=== PATIENT | male | born 1985 | race Caucasian/White ===

== ENCOUNTER → 2017-02-18 | Outpatient (CLI) | payer MEDICARE, MEDICAID ==
[~2017-02-18] MED LIST: ALBU83IN IN; ALBUTEROL INH; FLEXERIL PO; FLUT22IN IN; KEPPRA PO; NORT25CA2 OR; SING10TA31 OR
[2017-02-18 15:21] LABS: BASO % 0.4 % (0.0-1.0); EOS # 0.5 K/mm3 (0.0-0.50); EOS % 4.1 % (0.0-3.0); LYMPH # 2.3 K/mm3 (1.5-4.5); LYMPH % 18.8 % (24.0-44.0); MEAN CORPUSCULAR HEMOGLOBIN 33.2 pg (27.0-33.0); MEAN CORPUSCULAR HGB CONC 33.7 g/dl (32.0-36.5); MEAN CORPUSCULAR VOLUME 98.5 fl (80.0-96.0); MONO # 0.6 K/mm3 (0.0-0.8); MONO % 5.5 % (0.0-5.0); NEUTROPHILS % 70.4 % (36.0-66.0); RED CELL DISTRIBUTION WIDTH 12.9 % (11.5-14.5); WHITE BLOOD COUNT 11.4 K/mm3 (4.0-10.0)
[2017-02-18 15:38] LABS: ALBUMIN 3.6 GM/DL (3.2-5.2); ALKALINE PHOSPHATASE 98 U/L (45-117); ALT/SGPT 33 U/L (12-78); ANION GAP 6 MEQ/L (8-16); AST/SGOT 17 U/L (15-37); BILIRUBIN,TOTAL 0.5 MG/DL (0.2-1.0); BLOOD UREA NITROGEN 11 MG/DL (7-18); CARBON DIOXIDE LEVEL 30 MEQ/L (21-32); CHLORIDE LEVEL 101 MEQ/L (98-107); CHOLESTEROL LEVEL 141 MG/DL (<200); FREE T4 1.16 NG/DL (0.76-1.46); GLOMERULAR FILTRATION RATE > 60.0 (>60); GLUCOSE, FASTING 89 MG/DL (70-105); SODIUM LEVEL 137 MEQ/L (136-145); TOTAL PROTEIN 8.1 GM/DL (6.4-8.2); TRIGLYCERIDES LEVEL 84 MG/DL (<150)
[2017-02-22 00:06] LABS: LACOSAMIDE LEVEL 0.9 ug/mL (5.0-10.0)
== END ==
LOC: M LAB 13:34
PROVIDERS: ATTEND Nurse Practitioner Adult Health
DX: G40.909 Epilepsy, unspecified, not intractable, without status epilepticus (principal); E55.9 Vitamin D deficiency, unspecified; E78.5 Hyperlipidemia, unspecified; Z79.899 Other long term (current) drug therapy

== ENCOUNTER 2017-03-18 20:02 | Emergency (ER) | payer MEDICAID, MEDICARE ==
[~2017-03-18] VITALS: Ht 180.3 cm; Wt 159.9 kg
[2017-03-18] MEDS ORDERED: PROP1TAB29 PO (20:12)
[2017-03-18] MEDS ORDERED: ASMA220A (20:12)
[2017-03-18] MEDS ORDERED: VIMP50TA3 (20:12)
[2017-03-18] MEDS ORDERED: NORT10CA2 PO (20:12)
[2017-03-18] MEDS ORDERED: KEPP10002 PO (20:12)
[2017-03-18] MEDS ORDERED: INCR1INH (20:12)
[2017-03-18] MEDS ORDERED: TRIMETHOBENZAMIDE HCL INJ 200 MG/2 ML VIAL (J3250) IM ONE (20:45)
[2017-03-18 21:17] VITALS: BP 124/68
[2017-03-18] MEDS ORDERED: TIGA300C2 PO (21:30)
== END 2017-03-18 23:27 | disposition home or self-care (01) ==
LOC: M ED 20:02
DX: R11.2 Nausea with vomiting, unspecified (principal); R19.7 Diarrhea, unspecified; G43.909 Migraine, unspecified, not intractable, without status migrainosus; J45.909 Unspecified asthma, uncomplicated; Z87.891 Personal history of nicotine dependence; Z79.899 Other long term (current) drug therapy; Z88.6 Allergy status to analgesic agent; Z88.8 Allergy status to other drugs, medicaments and biological substances
CPT/HCPCS: 96372; 99282; J3250

== ENCOUNTER → 2017-09-19 | Outpatient (CLI) | payer MEDICARE, OTHER ==
[2017-09-19 13:54] LABS: BASO % 0.3 % (0.0-1.0); EOS # 0.5 10^3/uL (0.0-0.50); EOS % 5.2 % (0.0-3.0); HEMATOCRIT 42.4 % (42.0-52.0); HEMOGLOBIN 13.8 g/dl (14.0-18.0); IMMATURE GRANULOCYTE % 0.3 % (0-0); LYMPH # 2.4 10^3/uL (1.5-4.5); MEAN CORPUSCULAR HEMOGLOBIN 32.3 pg (27.0-33.0); MEAN CORPUSCULAR HGB CONC 32.5 g/dl (32.0-36.5); MEAN CORPUSCULAR VOLUME 99.3 fl (80.0-96.0); MONO # 0.7 10^3/uL (0.0-0.8); MONO % 8.1 % (0.0-5.0); NEUTROPHILS # 5.4 10^3/uL (1.8-7.7); NEUTROPHILS % 60.1 % (36.0-66.0); PLATELET COUNT, AUTOMATED 330 10^3/uL (150-450); RED BLOOD COUNT 4.27 10^6/uL (4.30-6.10); RED CELL DISTRIBUTION WIDTH 13.2 % (11.5-14.5)
[2017-09-19 14:08] LABS: ESTIMATED AVERAGE GLUCOSE 128 MG/DL (60-110); HEMOGLOBIN A1c 6.1 %
[2017-09-19 14:35] LABS: ALBUMIN 3.9 GM/DL (3.2-5.2); ALBUMIN/GLOBULIN RATIO 0.95 (1.00-1.93); ALKALINE PHOSPHATASE 93 U/L (45-117); ALT/SGPT 41 U/L (12-78); ANION GAP 7 MEQ/L (8-16); AST/SGOT 25 U/L (7-37); BILIRUBIN,TOTAL 0.5 MG/DL (0.2-1.0); BLOOD UREA NITROGEN 14 MG/DL (7-18); CALCIUM LEVEL 9.1 MG/DL (8.5-10.1); CARBON DIOXIDE LEVEL 32 MEQ/L (21-32); CHLORIDE LEVEL 100 MEQ/L (98-107); CHOLESTEROL LEVEL 178 MG/DL (<200); CHOLESTEROL RISK RATIO 3.068 (<5); CREATININE FOR GFR 0.73 MG/DL (0.70-1.30); GLOMERULAR FILTRATION RATE > 60.0 (>60); GLUCOSE, FASTING 88 MG/DL (70-105); HDL CHOLESTEROL 58 MG/DL (>40); LDL CHOLESTEROL 94.4 MG/DL (<100); NON-HDL-C 120 MG/DL; POTASSIUM SERUM 4.5 MEQ/L (3.5-5.1); SODIUM LEVEL 139 MEQ/L (136-145); THYROXINE (T4) 10.3 UG/DL (4.5-12.0); TRIGLYCERIDES LEVEL 128 MG/DL (<150)
[2017-09-19 15:44] LABS: TOTAL 25(OH) VITAMIN D 9.4 NG/ML (30.0-100.0)
== END ==
LOC: M LAB 13:11
DX: I10 Essential (primary) hypertension (principal); E78.5 Hyperlipidemia, unspecified; Z79.899 Other long term (current) drug therapy
CPT/HCPCS: 84443

== ENCOUNTER 2019-04-30 15:29 | Emergency (ER) | payer MEDICARE, MEDICAID ==
[~2019-04-30] VITALS: Ht 188 cm; Wt 167.7 kg
[~2019-04-30 15:29] MED LIST changes: +ASMA220A; +INCR1INH; +KEPP10002 PO; +NORT10CA2 PO; +PROP20TA72 PO; +TIGA300C2 PO; +VIMP50TA3
[2019-04-30] MEDS ORDERED: IBUP-1022 PO (18:28)
[2019-04-30 18:38] VITALS: BP 138/86
== END 2019-04-30 18:33 | disposition home or self-care (01) ==
LOC: M ED 15:29
DX: S16.1XXA Strain of muscle, fascia and tendon at neck level, initial encounter (principal); X58.XXXA Exposure to other specified factors, initial encounter; Y92.9 Unspecified place or not applicable; Y93.9 Activity, unspecified; Y99.9 Unspecified external cause status; I10 Essential (primary) hypertension; Z79.899 Other long term (current) drug therapy

== ENCOUNTER → 2022-03-27 | Outpatient (REF) | payer MEDICARE ==
[~2022-03-27] MED LIST changes: +IBUP-1022 PO
[2022-03-27 18:21] LABS: APPEARANCE, URINE HAZY (CLEAR); BACTERIA, URINE AUTO 2+ (NEGATIVE); BILIRUBIN, URINE AUTO NEGATIVE (NEGATIVE); BLOOD, URINE BLOOD 3+ (NEGATIVE); COLOR, URINE YELLOW (YELLOW); GLUCOSE, URINE (UA) AUTO NEGATIVE (NEGATIVE); KETONE, URINE AUTO NEGATIVE (NEGATIVE); LEUKOCYTE ESTERASE, URINE AUTO 3+ (NEGATIVE); MUCUS, URINE SMALL (NEGATIVE); NITRITE, URINE AUTO POSITIVE (NEGATIVE); PROTEIN, URINE AUTO 2+ mg/dL (NEGATIVE); RBC, URINE AUTO TNTC /HPF (0-3); SPECIFIC GRAVITY URINE AUTO 1.014 (1.002-1.035); SQUAMOUS EPITHELIAL CELL UR AU 1 /HPF (0-6); UROBILINOGEN, URINE AUTO 0.2 mg/dL (0.0-2.0); WBC, URINE AUTO 95 /HPF (0-3)
== END ==
LOC: M LAB REF 18:02
PROVIDERS: ATTEND Physician Assistant Medical
DX: N39.0 Urinary tract infection, site not specified (principal)

== ENCOUNTER 2022-04-16 22:57 | Emergency (ER) | payer MEDICARE ==
[~2022-04-16] VITALS: Ht 177.8 cm; Wt 171.4 kg
[~2022-04-16 22:57] MED LIST changes: -ASMA220A; +MOME220A
[2022-04-17] MEDS ORDERED: ASPIRIN 81 MG CHEW TABLET PO ONE (07:10)
[2022-04-17 07:41] LABS: BASO % 0.4 % (0.0-1.0); EOS # 0.6 10^3/uL (0.0-0.5); EOS % 5.3 % (0.0-3.0); HEMATOCRIT 44.7 % (42.0-52.0); HEMOGLOBIN 13.8 g/dl (13.5-17.5); LYMPH # 2.8 10^3/uL (1.5-5.0); LYMPH % 26.6 % (24.0-44.0); MEAN CORPUSCULAR HEMOGLOBIN 31.5 pg (27.0-33.0); MEAN CORPUSCULAR HGB CONC 30.9 g/dl (32.0-36.5); MEAN CORPUSCULAR VOLUME 102.1 fl (80.0-96.0); MONO # 0.8 10^3/uL (0.0-0.8); MONO % 7.3 % (2.0-8.0); NEUTROPHILS # 6.2 10^3/uL (1.5-8.5); NEUTROPHILS % 60.1 % (36.0-66.0); PLATELET COUNT, AUTOMATED 352 10^3/uL (150-450); RED BLOOD COUNT 4.38 10^6/uL (4.30-6.10); WHITE BLOOD COUNT 10.3 10^3/uL (4.0-10.0)
[2022-04-17 08:15] LABS: CK-MB VALUE MASS 1.7 NG/ML (<3.6); MB/CK RELATIVE INDEX 1.37 (< OR =4)
[2022-04-17 08:23] LABS: ALBUMIN 3.7 GM/DL (3.2-5.2); BILIRUBIN,DIRECT 0.1 MG/DL (0.0-0.2); BILIRUBIN,TOTAL 0.2 MG/DL (0.2-1.0); FREE T4 0.98 NG/DL (0.76-1.46); THYROID STIMULATING HORMONE 2.17 uIU/ML (0.358-3.740); TOTAL PROTEIN 8.1 GM/DL (6.4-8.2)
[2022-04-17 10:28] LABS: CK-MB VALUE MASS 1.1 NG/ML (<3.6); MB/CK RELATIVE INDEX 0.9 (< OR =4)
[2022-04-17 11:00] VITALS: BP 142/89
== END 2022-04-17 11:56 | disposition home or self-care (01) ==
LOC: M ED 22:57 → EDBD 22:57 → M ED 04-17 11:56
DX: I44.0 Atrioventricular block, first degree (principal); I45.10 Unspecified right bundle-branch block; I10 Essential (primary) hypertension; E78.5 Hyperlipidemia, unspecified; Z79.899 Other long term (current) drug therapy

== ENCOUNTER → 2022-06-17 | Outpatient (CLI) | payer MEDICARE | LOC: M PLARAD 14:36 | PROVIDERS: ATTEND Psychiatry & Neurology Neurology | DX: G40.209 Localization-related (focal) (partial) symptomatic epilepsy and epileptic syndromes with complex partial seizures, not intractable, without status epilepticus (principal); H53.2 Diplopia ==

== ENCOUNTER 2023-01-15 19:59 | Inpatient (IN) | payer MEDICARE ==
[~2023-01-15] VITALS: Ht 177.8 cm; Wt 173.3 kg
[2023-01-15] MEDS ORDERED: ACETAMINOPHEN 325 MG TAB PO ONE (20:20)
[2023-01-15] MEDS ORDERED: NS 1,000 ML IV ONE (22:25)
[2023-01-15] MEDS ORDERED: KETOROLAC 30 MG/ML 1ML VIAL IV ONE (22:25)
[2023-01-15] MEDS ORDERED: ONDANSETRON 4MG 2ML VIAL IV ONE (22:25)
[2023-01-15] MEDS ORDERED: levETIRAcetam 250MG TABLET (KEPPRA) PO ONE (22:35)
[2023-01-15 22:37] LABS: BASO # 0.1 10^3/uL (0.0-0.2); BASO % 0.2 % (0.0-1.0); EOS # 0.1 10^3/uL (0.0-0.5); EOS % 0.2 % (0.0-3.0); HEMOGLOBIN 13.2 g/dl (13.5-17.5); LYMPH # 1.3 10^3/uL (1.5-5.0); LYMPH % 6.1 % (24.0-44.0); MEAN CORPUSCULAR VOLUME 96.9 fl (80.0-96.0); MONO # 1.4 10^3/uL (0.0-0.8); MONO % 6.3 % (2.0-8.0); NEUTROPHILS # 18.9 10^3/uL (1.5-8.5); NEUTROPHILS % 86.7 % (36.0-66.0); PLATELET COUNT, AUTOMATED 330 10^3/uL (150-450); RED BLOOD COUNT 4.13 10^6/uL (4.30-6.10); WHITE BLOOD COUNT 21.8 10^3/uL (4.0-10.0)
[2023-01-15 22:42] LABS: LIPASE 25 U/L (12-53)
[2023-01-15 22:44] LABS: ALBUMIN 3.7 G/DL (3.2-5.2); ALKALINE PHOSPHATASE 91 U/L (46-116); ALT/SGPT 31 U/L (7.0-40); AST/SGOT 22 U/L (<34); BILIRUBIN,TOTAL 0.9 MG/DL (0.3-1.2); BLOOD UREA NITROGEN 19 MG/DL (9-23); CALCIUM LEVEL 9.5 MG/DL (8.5-10.1); CARBON DIOXIDE LEVEL 27 MMOL/L (20-31); CHLORIDE LEVEL 97 MMOL/L (98-107); CREATININE FOR GFR 1.21 MG/DL (0.70-1.30); GLOMERULAR FILTRATION RATE > 60.0 (>60); GLUCOSE, FASTING 147 MG/DL (60-100); POTASSIUM SERUM 3.6 MMOL/L (3.5-5.1); SODIUM LEVEL 133 MMOL/L (136-145); TOTAL PROTEIN 7.5 G/DL (5.7-8.2)
[2023-01-16] MEDS ORDERED: ISOVUE-370 76% 100ML VIAL As Ordered ONE (00:07)
[2023-01-16] MEDS ORDERED: NS 1,000 ML IV ONE (01:00)
[2023-01-16] MEDS ORDERED: cefTRIAXone SOD 1 GM in D5W MINI-BAG PLUS 50 ML IV ONE (01:30)
[2023-01-16] MEDS ORDERED: LOSA100T46 PO (01:37)
[2023-01-16] MEDS ORDERED: LEVE10003 PO (01:37)
[2023-01-16] MEDS ORDERED: METF500T13 PO (01:37)
[2023-01-16] MEDS ORDERED: HOME MED LIST COMPLETE! XX SCH (01:40)
[2023-01-16] MEDS ORDERED: LR 1,000 ML IV SCH (02:20)
[2023-01-16] MEDS ORDERED: DEXTROSE 50% 50ML SYRINGE IV PRN (02:20)
[2023-01-16] MEDS ORDERED: PANTOPRAZOLE 40MG TAB (PROTONIX) PO ONE (02:20)
[2023-01-16] MEDS ORDERED: GLUCOSE 4GM CHEW TABLET PO PRN (02:20)
[2023-01-16] MEDS ORDERED: GLUCAGON INJ 1MG VIAL SC PRN (02:20)
[2023-01-16] MEDS: ACETAMINOPHEN TAB 650MG DOSE (2X325MG) PO PRN ×3 (02:39→20:42)
[2023-01-16 03:10] LABS: GC DNA AMPLIFICATION NEGATIVE (NEGATIVE)
[2023-01-16] MEDS: IBUPROFEN 400MG TAB PO PRN ×2 (03:34→19:02)
[2023-01-16] MEDS: INSULIN LISPRO (NovoLOG) PER UNIT SC SCH ×3 (07:30→18:19)
[2023-01-16 07:35] LABS: BASO # 0.1 10^3/uL (0.0-0.2); BASO % 0.3 % (0.0-1.0); EOS # 0.1 10^3/uL (0.0-0.5); EOS % 0.5 % (0.0-3.0); HEMATOCRIT 36.6 % (42.0-52.0); LYMPH # 1.8 10^3/uL (1.5-5.0); LYMPH % 9.1 % (24.0-44.0); MEAN CORPUSCULAR HEMOGLOBIN 32.6 pg (27.0-33.0); MEAN CORPUSCULAR HGB CONC 32.8 g/dl (32.0-36.5); MEAN CORPUSCULAR VOLUME 99.5 fl (80.0-96.0); MONO % 7.9 % (2.0-8.0); NEUTROPHILS # 15.8 10^3/uL (1.5-8.5); NEUTROPHILS % 81.7 % (36.0-66.0); PLATELET COUNT, AUTOMATED 267 10^3/uL (150-450); RED BLOOD COUNT 3.68 10^6/uL (4.30-6.10); WHITE BLOOD COUNT 19.4 10^3/uL (4.0-10.0)
[2023-01-16 08:03] LABS: MONO # 1.5 10^3/uL (0.0-0.8)
[2023-01-16 08:08] LABS: BLOOD UREA NITROGEN 20 MG/DL (9-23); CALCIUM LEVEL 8.1 MG/DL (8.5-10.1); CARBON DIOXIDE LEVEL 28 MMOL/L (20-31); CHLORIDE LEVEL 103 MMOL/L (98-107); CREATININE FOR GFR 1.27 MG/DL (0.70-1.30); GLOMERULAR FILTRATION RATE > 60.0 (>60); GLUCOSE, FASTING 161 MG/DL (60-100); POTASSIUM SERUM 3.6 MMOL/L (3.5-5.1); SODIUM LEVEL 138 MMOL/L (136-145)
[2023-01-16] MEDS: ENOXAPARIN 40MG/0.4ML SYRINGE (J1650 PER 10MG) SC SCH (08:55)
[2023-01-16] MEDS: levETIRAcetam 250MG TABLET (KEPPRA) PO SCH ×2 (08:55→20:41)
[2023-01-16 11:50] VITALS: BP 108/78
[2023-01-16 14:00] VITALS: BP 143/85
[2023-01-16] MEDS: CALCIUM CARBONATE 500 MG CHEW U/D PO PRN (15:38)
[2023-01-16 19:50] VITALS: BP 124/51
[2023-01-17] MEDS: cefTRIAXone SOD 1 GM in D5W MINI-BAG PLUS 50 ML IV SCH (00:17)
[2023-01-17 01:30] VITALS: BP 126/73
[2023-01-17 05:40] VITALS: BP 125/74
[2023-01-17 06:40] LABS: HEMATOCRIT 36.4 % (42.0-52.0); HEMOGLOBIN 11.7 g/dl (13.5-17.5); MEAN CORPUSCULAR HEMOGLOBIN 32.1 pg (27.0-33.0); MEAN CORPUSCULAR HGB CONC 32.1 g/dl (32.0-36.5); PLATELET COUNT, AUTOMATED 279 10^3/uL (150-450); RED BLOOD COUNT 3.64 10^6/uL (4.30-6.10); WHITE BLOOD COUNT 14.9 10^3/uL (4.0-10.0)
[2023-01-17 07:24] LABS: BLOOD UREA NITROGEN 18 MG/DL (9-23); CARBON DIOXIDE LEVEL 29 MMOL/L (20-31); CHLORIDE LEVEL 103 MMOL/L (98-107); CREATININE FOR GFR 1.14 MG/DL (0.70-1.30); GLOMERULAR FILTRATION RATE > 60.0 (>60); GLUCOSE, FASTING 147 MG/DL (60-100); POTASSIUM SERUM 3.8 MMOL/L (3.5-5.1); SODIUM LEVEL 138 MMOL/L (136-145)
[2023-01-17] MEDS: ENOXAPARIN 40MG/0.4ML SYRINGE (J1650 PER 10MG) SC SCH (09:41)
[2023-01-17] MEDS: INSULIN LISPRO (NovoLOG) PER UNIT SC SCH ×3 (09:43→17:35)
[2023-01-17] MEDS: levETIRAcetam 250MG TABLET (KEPPRA) PO SCH ×2 (09:44→20:32)
[2023-01-17] MEDS: PANTOPRAZOLE 40MG TAB (PROTONIX) PO SCH (09:44)
[2023-01-17 10:00] VITALS: BP 124/73
[2023-01-17 14:00] VITALS: BP 138/79
[2023-01-17] MEDS: CALCIUM CARBONATE 500 MG CHEW U/D PO PRN (14:18)
[2023-01-17 18:00] VITALS: BP 135/90
[2023-01-17 22:00] VITALS: BP 131/77
[2023-01-18 02:00] VITALS: BP 129/75
[2023-01-18] MEDS: cefTRIAXone SOD 1 GM in D5W MINI-BAG PLUS 50 ML IV SCH (02:00)
[2023-01-18 06:00] VITALS: BP 128/75
[2023-01-18 06:27] LABS: HEMATOCRIT 36.4 % (42.0-52.0); HEMOGLOBIN 11.7 g/dl (13.5-17.5); MEAN CORPUSCULAR HEMOGLOBIN 32.2 pg (27.0-33.0); MEAN CORPUSCULAR HGB CONC 32.1 g/dl (32.0-36.5); MEAN CORPUSCULAR VOLUME 100.3 fl (80.0-96.0); PLATELET COUNT, AUTOMATED 325 10^3/uL (150-450); RED BLOOD COUNT 3.63 10^6/uL (4.30-6.10); WHITE BLOOD COUNT 9.7 10^3/uL (4.0-10.0)
[2023-01-18] MEDS: levETIRAcetam 250MG TABLET (KEPPRA) PO SCH (08:12)
[2023-01-18] MEDS: PANTOPRAZOLE 40MG TAB (PROTONIX) PO SCH (08:12)
[2023-01-18] MEDS: INSULIN LISPRO (NovoLOG) PER UNIT SC SCH ×2 (08:13→11:39)
[2023-01-18] MEDS: ENOXAPARIN 40MG/0.4ML SYRINGE (J1650 PER 10MG) SC SCH (08:13)
[2023-01-18 10:00] VITALS: BP 144/88
[2023-01-18] MEDS ORDERED: CEFD300C41 PO (10:42)
== END 2023-01-18 12:14 | disposition home or self-care (01) | DRG 690 ==
LOC: EDBD 19:59 → M ED 19:59 → M ED INP 01-16 02:10 → ENRESERV 01-16 09:23 → M MSPAV 01-16 11:10
PROVIDERS: ADMIT Internal Medicine; ATTEND Internal Medicine
DX: N12 Tubulo-interstitial nephritis, not specified as acute or chronic (principal); Z68.43 Body mass index [BMI] 50.0-59.9, adult; E66.01 Morbid (severe) obesity due to excess calories; G40.909 Epilepsy, unspecified, not intractable, without status epilepticus; J45.909 Unspecified asthma, uncomplicated; I10 Essential (primary) hypertension; K21.9 Gastro-esophageal reflux disease without esophagitis; N20.0 Calculus of kidney; E11.9 Type 2 diabetes mellitus without complications; E27.8 Other specified disorders of adrenal gland; D53.9 Nutritional anemia, unspecified; Z79.899 Other long term (current) drug therapy

== ENCOUNTER 2023-02-12 23:03 | Inpatient (IN) | payer MEDICARE ==
[~2023-02-12] VITALS: Ht 185.4 cm; Wt 173.4 kg
[~2023-02-12 23:03] MED LIST changes: +CEFD300C41 PO; +LEVE10003 PO; +LOSA100T46 PO; +METF500T13 PO
[2023-02-13] VITALS (20 sets, daily range): BP systolic 102–139; BP diastolic 54–66; TEMP 97.9–100.7; O2SAT 93–100
[2023-02-13 00:57] LABS: APPEARANCE, URINE MANUAL CLEAR (CLEAR); COLOR, URINE MANUAL YELLOW (YELLOW)
[2023-02-13 01:00] LABS: BASO # 0.1 10^3/uL (0.0-0.2); BASO % 0.3 % (0.0-1.0); EOS # 0.3 10^3/uL (0.0-0.5); EOS % 1.4 % (0.0-3.0); HEMATOCRIT 40.1 % (42.0-52.0); HEMOGLOBIN 12.9 g/dl (13.5-17.5); LYMPH # 1.5 10^3/uL (1.5-5.0); LYMPH % 8.1 % (24.0-44.0); MEAN CORPUSCULAR HEMOGLOBIN 31.4 pg (27.0-33.0); MEAN CORPUSCULAR HGB CONC 32.2 g/dl (32.0-36.5); MEAN CORPUSCULAR VOLUME 97.6 fl (80.0-96.0); MONO % 9.8 % (2.0-8.0); NEUTROPHILS # 14.5 10^3/uL (1.5-8.5); PLATELET COUNT, AUTOMATED 283 10^3/uL (150-450); RED BLOOD COUNT 4.11 10^6/uL (4.30-6.10); WHITE BLOOD COUNT 18.1 10^3/uL (4.0-10.0)
[2023-02-13 01:06] LABS: BILIRUBIN, URINE MANUAL 2+ (NEGATIVE); BLOOD URINE MANUAL POSITIVE (NEGATIVE); GLUCOSE, URINE (UA) MANUAL NEGATIVE (NEGATIVE); KETONE, URINE MANUAL NEGATIVE (NEGATIVE); LEUKOCYTE ESTERASE, URINE MAN POSITIVE (NEGATIVE); NITRITE, URINE MANUAL POSITIVE (NEGATIVE); PROTEIN, URINE MANUAL 1+ mg/dL (NEGATIVE); SPECIFIC GRAVITY,URINE MANUAL 1.015 (1.002-1.035); UROBILINOGEN, URINE MANUAL NORMAL (NORMAL)
[2023-02-13 01:08] LABS: BACTERIA, URINE MOD AMOUNT; HYALINE CAST, URINE NONE SEEN /lpf (0-1); SQUAMOUS EPITHELIAL CELL URINE SMALL AMOUNT /hpf (SMALL AMT); TRANSITIONAL EPI CELLS, URINE SMALL AMOUNT /hpf; WBC, URINE 15-20 /hpf (0-3)
[2023-02-13 01:15] LABS: MONO # 1.8 10^3/uL (0.0-0.8)
[2023-02-13 01:28] LABS: ALBUMIN 3.6 G/DL (3.2-5.2); BILIRUBIN,TOTAL 1.2 MG/DL (0.3-1.2); CALCIUM LEVEL 9.5 MG/DL (8.5-10.1); CREATININE FOR GFR 2.17 MG/DL (0.70-1.30); GLOMERULAR FILTRATION RATE 36.6 (>60); POTASSIUM SERUM 3.7 MMOL/L (3.5-5.1); TOTAL PROTEIN 7.7 G/DL (5.7-8.2)
[2023-02-13 01:30] LABS: RSV AMPLIFICATION NEGATIVE (NEGATIVE)
[2023-02-13] MEDS ORDERED: ACETAMINOPHEN 325 MG TAB PO ONE (01:55)
[2023-02-13] MEDS ORDERED: NS IV ONE (01:55)
[2023-02-13] MEDS ORDERED: PIPERACILLIN/TAZOBACTAM SOD 3.375 GM in D5W MINI-BAG PLUS 50 ML IV ONE (02:50)
[2023-02-13] MEDS ORDERED: HOME MED LIST COMPLETE! XX SCH (05:05)
[2023-02-13] MEDS ORDERED: MORPHINE 2 MG/ML 1ML VIAL IV PRN (05:15)
[2023-02-13] MEDS ORDERED: GLUCOSE 4GM CHEW TABLET PO PRN ×2 (05:15→08:50)
[2023-02-13] MEDS ORDERED: GLUCAGON INJ 1MG VIAL SC PRN ×2 (05:15→08:50)
[2023-02-13] MEDS ORDERED: DEXTROSE 50% 50ML SYRINGE IV PRN ×2 (05:15→08:50)
[2023-02-13] MEDS ORDERED: MORPHINE 4 MG/ML 1ML VIAL IV PRN (05:15)
[2023-02-13] MEDS ORDERED: ONDANSETRON 4MG 2ML VIAL IV PRN ×2 (05:15→08:45)
[2023-02-13] MEDS ORDERED: INSULIN LISPRO (NovoLOG) PER UNIT SC SCH (06:00)
[2023-02-13] MEDS: ACETAMINOPHEN TAB 650MG DOSE (2X325MG) PO PRN ×2 (06:07→13:07)
[2023-02-13] MEDS ORDERED: ALBUTEROL SULFATE 2.5MG/0.5ML INH NEB SOLN NEB PRN (06:10)
[2023-02-13] MEDS ORDERED: ISOVUE-300 61% 100ML VIAL As Ordered ONE (07:18)
[2023-02-13] MEDS ORDERED: LIDOCAINE 2% 100MG/5ML SDV (FOR ANES.) As Ordered ONE (08:26)
[2023-02-13] MEDS ORDERED: propofoL 200 MG/20 ML VIAL As Ordered ONE (08:26)
[2023-02-13] MEDS ORDERED: ROCURONIUM BROMIDE 50MG/5ML VIAL As Ordered ONE (08:26)
[2023-02-13] MEDS ORDERED: SUGAMMADEX SODIUM 500 MG/5 ML VIAL (BRIDION) As Ordered ONE (08:26)
[2023-02-13] MEDS ORDERED: ONDANSETRON 4MG 2ML VIAL As Ordered ONE (08:26)
[2023-02-13] MEDS ORDERED: MIDAZOLAM INJ 2MG/2ML VIAL As Ordered ONE (08:26)
[2023-02-13] MEDS ORDERED: fentaNYL 100 MCG/2 ML INJECTION As Ordered ONE (08:26)
[2023-02-13] MEDS ORDERED: ACETAMINOPHEN 1000MG 100ML IV BAG As Ordered ONE (08:27)
[2023-02-13] MEDS ORDERED: ALBUTEROL 6.7GM INHALER **FOR ANES. CART/OMNICELL ONLY As Ordered ONE (08:30)
[2023-02-13] MEDS ORDERED: HYDROMORPHONE HCL 0.5 MG/ 0.5 ML SYRINGE IV PRN (08:45)
[2023-02-13] MEDS ORDERED: fentaNYL 100 MCG/2 ML INJECTION IV PRN (08:45)
[2023-02-13] MEDS ORDERED: LR 1,000 ML IV SCH (08:45)
[2023-02-13] MEDS ORDERED: INSULIN LISPRO (NovoLOG) PER UNIT SC PRN (08:45)
[2023-02-13] MEDS ORDERED: oxyCODONE 5MG TAB PO PRN (08:45)
[2023-02-13] MEDS ORDERED: levETIRAcetam INJection 1,000 MG in D5W 100 ML IV SCH (09:00)
[2023-02-13] MEDS: PIPERACILLIN/TAZOBACTAM SOD 3.375 GM in D5W MINI-BAG PLUS 50 ML IV SCH ×3 (10:16→20:26)
[2023-02-13] MEDS: NS 1,000 ML IV SCH ×2 (10:16→22:25)
[2023-02-13] MEDS: levETIRAcetam 250MG TABLET (KEPPRA) PO SCH ×2 (10:18→20:26)
[2023-02-13] MEDS: INSULIN LISPRO (NovoLOG) PER UNIT SC SCH ×3 (13:08→20:26)
[2023-02-14] VITALS (12 sets, daily range): BP systolic 111–130; BP diastolic 55–77; TEMP 96–98.5; O2SAT 75–99
[2023-02-14] MEDS: PIPERACILLIN/TAZOBACTAM SOD 3.375 GM in D5W MINI-BAG PLUS 50 ML IV SCH ×4 (02:40→20:49)
[2023-02-14 05:44] LABS: HEMATOCRIT 32.6 % (42.0-52.0); MEAN CORPUSCULAR HEMOGLOBIN 32.4 pg (27.0-33.0); MEAN CORPUSCULAR HGB CONC 31.9 g/dl (32.0-36.5); MEAN CORPUSCULAR VOLUME 101.6 fl (80.0-96.0); PLATELET COUNT, AUTOMATED 224 10^3/uL (150-450); RED BLOOD COUNT 3.21 10^6/uL (4.30-6.10); WHITE BLOOD COUNT 15.4 10^3/uL (4.0-10.0)
[2023-02-14 05:47] LABS: HEMOGLOBIN 10.4 g/dl (13.5-17.5)
[2023-02-14 06:09] LABS: CALCIUM LEVEL 7.6 MG/DL (8.5-10.1); CREATININE FOR GFR 1.65 MG/DL (0.70-1.30); GLOMERULAR FILTRATION RATE 50.2 (>60); POTASSIUM SERUM 3.6 MMOL/L (3.5-5.1)
[2023-02-14] MEDS: INSULIN LISPRO (NovoLOG) PER UNIT SC SCH ×4 (08:46→20:54)
[2023-02-14] MEDS: levETIRAcetam 250MG TABLET (KEPPRA) PO SCH ×2 (08:47→20:49)
[2023-02-14] MEDS ORDERED: OMEPRAZOLE 20MG CAP PO ONE (22:00)
[2023-02-15] MEDS: PIPERACILLIN/TAZOBACTAM SOD 3.375 GM in D5W MINI-BAG PLUS 50 ML IV SCH ×2 (03:00→08:46)
[2023-02-15 05:50] VITALS: BP 130/80; TEMP 98.1; O2SAT 97
[2023-02-15 06:14] LABS: BASO % 0.4 % (0.0-1.0); EOS # 0.4 10^3/uL (0.0-0.5); EOS % 3.7 % (0.0-3.0); HEMATOCRIT 32.2 % (42.0-52.0); HEMOGLOBIN 10.3 g/dl (13.5-17.5); LYMPH # 1.8 10^3/uL (1.5-5.0); LYMPH % 16.5 % (24.0-44.0); MEAN CORPUSCULAR HEMOGLOBIN 31.8 pg (27.0-33.0); MEAN CORPUSCULAR VOLUME 99.4 fl (80.0-96.0); MONO # 0.9 10^3/uL (0.0-0.8); MONO % 8.4 % (2.0-8.0); NEUTROPHILS # 7.8 10^3/uL (1.5-8.5); NEUTROPHILS % 70.7 % (36.0-66.0); PLATELET COUNT, AUTOMATED 276 10^3/uL (150-450); RED BLOOD COUNT 3.24 10^6/uL (4.30-6.10)
[2023-02-15 06:44] LABS: BLOOD UREA NITROGEN 19 MG/DL (9-23); CALCIUM LEVEL 7.8 MG/DL (8.5-10.1); CARBON DIOXIDE LEVEL 29 MMOL/L (20-31); CHLORIDE LEVEL 104 MMOL/L (98-107); CREATININE FOR GFR 1.36 MG/DL (0.70-1.30); GLOMERULAR FILTRATION RATE > 60.0 (>60); GLUCOSE, FASTING 142 MG/DL (60-100); POTASSIUM SERUM 3.9 MMOL/L (3.5-5.1); SODIUM LEVEL 139 MMOL/L (136-145)
[2023-02-15] MEDS: levETIRAcetam 250MG TABLET (KEPPRA) PO SCH (08:45)
[2023-02-15] MEDS: INSULIN LISPRO (NovoLOG) PER UNIT SC SCH ×2 (08:46→13:11)
[2023-02-15] MEDS ORDERED: CEFD300C41 PO (11:50)
[2023-02-15] MEDS ORDERED: AMLO1TAB25 PO (11:50)
[2023-02-15] MEDS ORDERED: PROBCAP14 PO (11:51)
== END 2023-02-15 13:33 | disposition home or self-care (01) | DRG 872 ==
LOC: EDBD 23:03 → M ED 23:03 → UNDOADMIN 02-13 05:15 → M ED INP 02-13 05:15 → ENRESERV 02-13 06:52 → M PCU 02-13 09:31 → M MSPAV 02-14 22:45
PROVIDERS: ADMIT Internal Medicine; ATTEND Internal Medicine Nephrology
PROC: 0T767DZ Dilation of Right Ureter with Intraluminal Device, Via Natural or Artificial Opening (ICD-10-PCS; principal; 2023-02-13 07:30)
DX: A41.9 Sepsis, unspecified organism (principal); N17.9 Acute kidney failure, unspecified; N12 Tubulo-interstitial nephritis, not specified as acute or chronic; N13.2 Hydronephrosis with renal and ureteral calculous obstruction; E87.1 Hypo-osmolality and hyponatremia; Z68.43 Body mass index [BMI] 50.0-59.9, adult; I10 Essential (primary) hypertension; D64.9 Anemia, unspecified; K21.9 Gastro-esophageal reflux disease without esophagitis; G40.909 Epilepsy, unspecified, not intractable, without status epilepticus; E66.9 Obesity, unspecified; G47.33 Obstructive sleep apnea (adult) (pediatric); E11.9 Type 2 diabetes mellitus without complications; Z79.899 Other long term (current) drug therapy

== ENCOUNTER 2023-03-21 19:07 | Emergency (ER) | payer MEDICARE, MEDICAID ==
[~2023-03-21] VITALS: Ht 177.8 cm; Wt 172.0 kg
[~2023-03-21 19:07] MED LIST changes: +AMLO1TAB25 PO; +PROBCAP14 PO
[2023-03-21 20:25] LABS: BLOOD UREA NITROGEN 19 MG/DL (9-23); CALCIUM LEVEL 8.7 MG/DL (8.5-10.1); CARBON DIOXIDE LEVEL 25 MMOL/L (20-31); CHLORIDE LEVEL 101 MMOL/L (98-107); CREATININE FOR GFR 1.25 MG/DL (0.70-1.30); GLOMERULAR FILTRATION RATE > 60.0 (>60); GLUCOSE, FASTING 169 MG/DL (60-100); POTASSIUM SERUM 4.1 MMOL/L (3.5-5.1); SODIUM LEVEL 138 MMOL/L (136-145)
[2023-03-21 20:31] VITALS: TEMP 98
[2023-03-21 20:46] LABS: BASO # 0.1 10^3/uL (0.0-0.2); BASO % 0.4 % (0.0-1.0); EOS # 0.6 10^3/uL (0.0-0.5); EOS % 4.8 % (0.0-3.0); HEMATOCRIT 34.8 % (42.0-52.0); HEMOGLOBIN 11.2 g/dl (13.5-17.5); LYMPH # 2.5 10^3/uL (1.5-5.0); MEAN CORPUSCULAR HEMOGLOBIN 31.5 pg (27.0-33.0); MEAN CORPUSCULAR HGB CONC 32.2 g/dl (32.0-36.5); MONO # 0.9 10^3/uL (0.0-0.8); MONO % 7.2 % (2.0-8.0); NEUTROPHILS # 8.9 10^3/uL (1.5-8.5); NEUTROPHILS % 68.2 % (36.0-66.0); PLATELET COUNT, AUTOMATED 442 10^3/uL (150-450); RED BLOOD COUNT 3.55 10^6/uL (4.30-6.10)
[2023-03-21 21:16] VITALS: BP 140/63; O2SAT 99
[2023-03-21] MEDS ORDERED: LevoFLOXacin 750 MG TABLET PO ONE (21:55)
[2023-03-21] MEDS ORDERED: LEVO1TAB40 PO (21:56)
== END 2023-03-21 22:07 | disposition home or self-care (01) ==
LOC: M ED 19:07 → EDBD 19:07 → M ED 22:07
DX: N20.1 Calculus of ureter (principal); N39.0 Urinary tract infection, site not specified; E11.9 Type 2 diabetes mellitus without complications; K21.9 Gastro-esophageal reflux disease without esophagitis; J45.909 Unspecified asthma, uncomplicated; I10 Essential (primary) hypertension; Z87.442 Personal history of urinary calculi; Z79.4 Long term (current) use of insulin; Z79.2 Long term (current) use of antibiotics; Z79.899 Other long term (current) drug therapy

== ENCOUNTER → 2023-03-29 | Outpatient (CLI) | payer MEDICARE, MEDICAID ==
[~2023-03-29] MED LIST changes: +FAMO20TA5 PO; +LEVE500T5 PO; +LEVO1TAB40 PO
== END ==
LOC: M PLALAB 12:11
PROVIDERS: ATTEND Urology
DX: N20.1 Calculus of ureter (principal)

== ENCOUNTER 2023-04-04 06:44 | Day surgery (SDC) | payer MEDICARE, MEDICAID ==
[~2023-04-04] VITALS: Ht 188 cm; Wt 173.5 kg
[2023-04-04] MEDS ORDERED: ceFAZolin SOD 2 GM in IV 1 EA IV ONE (07:15)
[2023-04-04] MEDS ORDERED: ceFAZolin SOD 1 GM in D5W MINI-BAG PLUS 50 ML IV ONE (07:15)
[2023-04-04] MEDS ORDERED: LR 1,000 ML IV SCH ×2 (07:30→10:10)
[2023-04-04] MEDS ORDERED: ISOVUE-300 61% 100ML VIAL As Ordered ONE (08:55)
[2023-04-04] MEDS ORDERED: ACETAMINOPHEN 1000MG 100ML IV BAG As Ordered ONE (09:28)
[2023-04-04] MEDS ORDERED: propofoL 200 MG/20 ML VIAL As Ordered ONE (09:28)
[2023-04-04] MEDS ORDERED: LIDOCAINE 2% 100MG/5ML SDV (FOR ANES.) As Ordered ONE (09:28)
[2023-04-04] MEDS ORDERED: METOCLOPRAMIDE INJ 10MG/2ML VIAL As Ordered ONE (09:28)
[2023-04-04] MEDS ORDERED: MIDAZOLAM INJ 2MG/2ML VIAL As Ordered ONE (09:28)
[2023-04-04] MEDS ORDERED: ROCURONIUM BROMIDE 50MG/5ML VIAL As Ordered ONE (09:28)
[2023-04-04] MEDS ORDERED: SUGAMMADEX SODIUM 500 MG/5 ML VIAL (BRIDION) As Ordered ONE (09:28)
[2023-04-04] MEDS ORDERED: fentaNYL 250 MCG/5 ML INJECTION As Ordered ONE (09:28)
[2023-04-04] MEDS ORDERED: ONDANSETRON 4MG 2ML VIAL As Ordered ONE (09:28)
[2023-04-04] MEDS ORDERED: ePHEDrine SULFATE 25 MG/5 ML(5MG/ML) SYRINGE As Ordered ONE (09:54)
[2023-04-04] MEDS ORDERED: MACR100C43 PO (10:09)
[2023-04-04] MEDS ORDERED: OXYB5TAB10 PO (10:09)
[2023-04-04] MEDS ORDERED: PYRI1TAB5 PO (10:09)
[2023-04-04] MEDS ORDERED: fentaNYL 100 MCG/2 ML INJECTION IV PRN (10:10)
[2023-04-04] MEDS ORDERED: oxyCODONE 5MG TAB PO PRN (10:10)
[2023-04-04] MEDS ORDERED: ONDANSETRON 4MG 2ML VIAL IV PRN (10:10)
[2023-04-04] MEDS ORDERED: HYDROMORPHONE HCL 0.5 MG/ 0.5 ML SYRINGE IV PRN (10:10)
[2023-04-04 14:22] VITALS: BP 135/82; TEMP 97.8; O2SAT 99
== END 2023-04-04 14:50 | disposition home or self-care (01) ==
LOC: M SDC 06:44
PROVIDERS: ATTEND Urology
DX: N20.1 Calculus of ureter (principal); I10 Essential (primary) hypertension; E11.9 Type 2 diabetes mellitus without complications; K21.9 Gastro-esophageal reflux disease without esophagitis; F41.9 Anxiety disorder, unspecified; F32.A Depression, unspecified; G40.909 Epilepsy, unspecified, not intractable, without status epilepticus; G47.33 Obstructive sleep apnea (adult) (pediatric); Z79.84 Long term (current) use of oral hypoglycemic drugs; Z79.899 Other long term (current) drug therapy
CPT/HCPCS: 52356; 74420; C1769; C2617; J0131; J0690; J1100; J2250; J2405; J2765; J3010; Q9967

== ENCOUNTER 2023-05-10 14:45 | Emergency (ER) | payer MEDICAID, MEDICARE ==
[~2023-05-10] VITALS: Ht 182.9 cm; Wt 177.3 kg
[~2023-05-10 14:45] MED LIST changes: +MACR100C43 PO; +OXYB5TAB10 PO; +PYRI1TAB5 PO
[2023-05-10 14:59] VITALS: TEMP 98.7
[2023-05-10 16:20] LABS: RSV AMPLIFICATION NEGATIVE (NEGATIVE)
[2023-05-10] MEDS ORDERED: NS 1,000 ML IV ONE (18:05)
[2023-05-10 18:33] LABS: VENOUS BASE EXCESS 0.8 (-2.0-2.0); VENOUS HCO3 26.1 MMOL/L (23.0-27.0); VENOUS PARTIAL PRESSURE CO2 44.1 mmHg (38.0-50.0); VENOUS PARTIAL PRESSURE O2 56.4 mmHg (30.0-50.0); VENOUS TOTAL CO2 27.5 MMOL/L (24.0-28.0)
[2023-05-10 18:39] LABS: APPEARANCE, URINE CLEAR (CLEAR); BACTERIA, URINE AUTO NEGATIVE (NEGATIVE); BILIRUBIN, URINE AUTO NEGATIVE (NEGATIVE); BLOOD, URINE BLOOD 3+ (NEGATIVE); COLOR, URINE YELLOW (YELLOW); GLUCOSE, URINE (UA) AUTO NEGATIVE (NEGATIVE); KETONE, URINE AUTO NEGATIVE (NEGATIVE); LEUKOCYTE ESTERASE, URINE AUTO 3+ (NEGATIVE); NITRITE, URINE AUTO NEGATIVE (NEGATIVE); PROTEIN, URINE AUTO 1+ mg/dL (NEGATIVE); RBC, URINE AUTO 59 /HPF (0-3); SPECIFIC GRAVITY URINE AUTO 1.014 (1.002-1.035); SQUAMOUS EPITHELIAL CELL UR AU 0 /HPF (0-6); UROBILINOGEN, URINE AUTO 0.2 mg/dL (0.0-2.0); WBC, URINE AUTO 23 /HPF (0-3)
[2023-05-10 18:39] LABS: BASO % 0.4 % (0.0-1.0); EOS # 0.8 10^3/uL (0.0-0.5); EOS % 7.4 % (0.0-3.0); HEMATOCRIT 38.7 % (42.0-52.0); HEMOGLOBIN 12.4 g/dl (13.5-17.5); LYMPH # 2.9 10^3/uL (1.5-5.0); LYMPH % 27.2 % (24.0-44.0); MEAN CORPUSCULAR HEMOGLOBIN 32.1 pg (27.0-33.0); MEAN CORPUSCULAR VOLUME 100.3 fl (80.0-96.0); MONO # 0.8 10^3/uL (0.0-0.8); MONO % 7.6 % (2.0-8.0); NEUTROPHILS # 6.2 10^3/uL (1.5-8.5); NEUTROPHILS % 57.2 % (36.0-66.0); PLATELET COUNT, AUTOMATED 307 10^3/uL (150-450); RED BLOOD COUNT 3.86 10^6/uL (4.30-6.10); WHITE BLOOD COUNT 10.8 10^3/uL (4.0-10.0)
[2023-05-10 19:04] LABS: CK-MB VALUE MASS 1.3 NG/ML (<3.6)
[2023-05-10 19:06] LABS: MB/CK RELATIVE INDEX 0.61 (< OR =4)
[2023-05-10] MEDS ORDERED: CEFD300C41 PO (19:23)
[2023-05-10 19:38] VITALS: BP 169/78; O2SAT 98
== END 2023-05-10 19:39 | disposition home or self-care (01) ==
LOC: M ED 14:45 → EDBD 14:45 → M ED 19:39
DX: N39.0 Urinary tract infection, site not specified (principal); R53.81 Other malaise; R00.1 Bradycardia, unspecified; I45.10 Unspecified right bundle-branch block; K21.9 Gastro-esophageal reflux disease without esophagitis; G40.909 Epilepsy, unspecified, not intractable, without status epilepticus; E11.9 Type 2 diabetes mellitus without complications; Z79.2 Long term (current) use of antibiotics; Z79.4 Long term (current) use of insulin; Z79.899 Other long term (current) drug therapy

== ENCOUNTER 2023-07-18 13:48 | Emergency (ER) | payer MEDICARE, MEDICAID ==
[~2023-07-18] VITALS: Ht 182.9 cm; Wt 183.7 kg
[~2023-07-18 13:48] MED LIST changes: -CEFD300C41 PO; +CEFD300C42 PO; -OXYB5TAB10 PO; +OXYB5TAB11 PO
[2023-07-18] MEDS ORDERED: IPRATROPIUM 0.5MG/ALBUTEROL 2.5MG INH SOL UD 3ML (DUONEB) NEB STA (16:31)
[2023-07-18 17:20] LABS: BASO % 0.5 % (0.0-1.0); EOS # 0.5 10^3/uL (0.0-0.5); HEMATOCRIT 44.5 % (42.0-52.0); HEMOGLOBIN 13.9 g/dl (13.5-17.5); LYMPH # 2.5 10^3/uL (1.5-5.0); MEAN CORPUSCULAR HEMOGLOBIN 31.2 pg (27.0-33.0); MEAN CORPUSCULAR HGB CONC 31.2 g/dl (32.0-36.5); MEAN CORPUSCULAR VOLUME 99.8 fl (80.0-96.0); MONO # 0.6 10^3/uL (0.0-0.8); MONO % 7.6 % (2.0-8.0); NEUTROPHILS # 4.6 10^3/uL (1.5-8.5); NEUTROPHILS % 55.7 % (36.0-66.0); PLATELET COUNT, AUTOMATED 369 10^3/uL (150-450); RED BLOOD COUNT 4.46 10^6/uL (4.30-6.10); WHITE BLOOD COUNT 8.2 10^3/uL (4.0-10.0)
[2023-07-18 17:42] LABS: CK-MB VALUE MASS 1.5 NG/ML (<3.6)
[2023-07-18 17:52] LABS: MB/CK RELATIVE INDEX 0.62 (< OR =4)
[2023-07-18] MEDS ORDERED: ALBU8.5H INH (18:15)
[2023-07-18 18:39] VITALS: BP 158/90; TEMP 98.1; O2SAT 100
== END 2023-07-18 18:53 | disposition home or self-care (01) ==
LOC: M ED 13:48
DX: R06.02 Shortness of breath (principal); E11.9 Type 2 diabetes mellitus without complications; I10 Essential (primary) hypertension; J45.909 Unspecified asthma, uncomplicated; G40.909 Epilepsy, unspecified, not intractable, without status epilepticus; Z79.52 Long term (current) use of systemic steroids; Z79.4 Long term (current) use of insulin; Z79.899 Other long term (current) drug therapy

== ENCOUNTER 2023-08-10 12:46 | Emergency (ER) | payer MEDICARE, MEDICAID ==
[~2023-08-10] VITALS: Ht 185.4 cm; Wt 181.8 kg
[~2023-08-10 12:46] MED LIST changes: +ALBU8.5H INH; +CEFD1CAP9 PO; -CEFD300C42 PO
[2023-08-10 14:51] VITALS: BP 158/98; TEMP 98.5; O2SAT 95
[2023-08-31] MEDS ORDERED: MEDR4PAK PO (11:35)
[2023-08-31] MEDS ORDERED: AMLO1TAB25 PO (11:35)
== END 2023-08-10 14:53 | disposition home or self-care (01) ==
LOC: M ED 12:46
DX: R06.02 Shortness of breath (principal); E11.9 Type 2 diabetes mellitus without complications; I10 Essential (primary) hypertension; Z99.89 Dependence on other enabling machines and devices; G47.33 Obstructive sleep apnea (adult) (pediatric); Z79.899 Other long term (current) drug therapy; Z79.51 Long term (current) use of inhaled steroids; Z79.84 Long term (current) use of oral hypoglycemic drugs

== ENCOUNTER 2023-09-09 23:39 | Emergency (ER) | payer MEDICARE, MEDICAID ==
[~2023-09-09] VITALS: Ht 185.4 cm; Wt 172.7 kg
[~2023-09-09 23:39] MED LIST changes: +MEDR4PAK PO
[2023-09-10 01:00] LABS: RSV AMPLIFICATION NEGATIVE (NEGATIVE)
[2023-09-10] MEDS: IPRATROPIUM 0.5MG/ALBUTEROL 2.5MG INH SOL UD 3ML (DUONEB) NEB SCH ×3 (07:29→07:52)
[2023-09-10 07:59] LABS: BASO # 0.1 10^3/uL (0.0-0.2); BASO % 0.5 % (0.0-1.0); EOS # 0.4 10^3/uL (0.0-0.5); EOS % 3.6 % (0.0-3.0); HEMATOCRIT 44.9 % (42.0-52.0); HEMOGLOBIN 14.2 g/dl (13.5-17.5); LYMPH # 3.3 10^3/uL (1.5-5.0); LYMPH % 29.6 % (24.0-44.0); MEAN CORPUSCULAR HEMOGLOBIN 31.4 pg (27.0-33.0); MEAN CORPUSCULAR HGB CONC 31.6 g/dl (32.0-36.5); MEAN CORPUSCULAR VOLUME 99.3 fl (80.0-96.0); MONO # 0.8 10^3/uL (0.0-0.8); MONO % 6.9 % (2.0-8.0); NEUTROPHILS # 6.6 10^3/uL (1.5-8.5); PLATELET COUNT, AUTOMATED 317 10^3/uL (150-450); RED BLOOD COUNT 4.52 10^6/uL (4.30-6.10); WHITE BLOOD COUNT 11.1 10^3/uL (4.0-10.0)
[2023-09-10 08:22] LABS: BLOOD UREA NITROGEN 19 MG/DL (9-23); CALCIUM LEVEL 9.2 MG/DL (8.5-10.1); CARBON DIOXIDE LEVEL 29 MMOL/L (20-31); CHLORIDE LEVEL 102 MMOL/L (98-107); CREATININE FOR GFR 0.81 MG/DL (0.70-1.30); GLOMERULAR FILTRATION RATE > 60.0 (>60); GLUCOSE, FASTING 137 MG/DL (60-100); POTASSIUM SERUM 4.7 MMOL/L (3.5-5.1); SODIUM LEVEL 139 MMOL/L (136-145)
[2023-09-10] MEDS ORDERED: ISOVUE-370 76% 100ML VIAL As Ordered ONE (09:01)
[2023-09-10] MEDS ORDERED: ZITHTAB PO (11:15)
[2023-09-10] MEDS ORDERED: FLUT12AE6 INH (11:15)
[2023-09-10 11:35] VITALS: BP 150/87; TEMP 97.5; O2SAT 95
== END 2023-09-10 11:39 | disposition home or self-care (01) ==
LOC: M ED 23:39
DX: J20.9 Acute bronchitis, unspecified (principal); J45.909 Unspecified asthma, uncomplicated; I45.10 Unspecified right bundle-branch block; Z79.52 Long term (current) use of systemic steroids; Z79.2 Long term (current) use of antibiotics; Z79.899 Other long term (current) drug therapy
CPT/HCPCS: 36415; 71260; 80048; 85025; 85379; 87631; 93005; 94640; 94760; 99284; Q9967

== ENCOUNTER 2023-09-20 14:04 | Emergency (ER) | payer MEDICARE, MEDICAID ==
[~2023-09-20] VITALS: Ht 185.4 cm; Wt 172.7 kg
[~2023-09-20 14:04] MED LIST changes: +FLUT12AE6 INH; +ZITHTAB PO
[2023-09-20] MEDS ORDERED: MORPHINE 4 MG/ML 1ML VIAL IV PRN (14:20)
[2023-09-20] MEDS ORDERED: ONDA4TAB6 PO (16:12)
[2023-09-20] MEDS ORDERED: PERC5TAB12 PO (16:12)
[2023-09-20 16:33] VITALS: BP 146/82; TEMP 97.9; O2SAT 98
== END 2023-09-20 16:35 | disposition home or self-care (01) ==
LOC: EDBD 14:04 → M ED 14:04
DX: N20.1 Calculus of ureter (principal); G47.33 Obstructive sleep apnea (adult) (pediatric); Z87.442 Personal history of urinary calculi

== ENCOUNTER 2023-09-30 04:39 | Emergency (ER) | payer MEDICARE, MEDICAID ==
[~2023-09-30] VITALS: Ht 185.4 cm; Wt 172.7 kg
[~2023-09-30 04:39] MED LIST changes: +ONDA4TAB6 PO; +PERC5TAB12 PO
[2023-09-30] MEDS ORDERED: cefTRIAXone SOD 1 GM in D5W MINI-BAG PLUS 50 ML IV ONE (08:35)
[2023-09-30] MEDS ORDERED: NS 1,000 ML IV ONE (08:35)
[2023-09-30] MEDS ORDERED: KETOROLAC 30 MG/ML 1ML VIAL IV ONE (08:35)
[2023-09-30] MEDS ORDERED: ONDANSETRON 4MG 2ML VIAL IV ONE (09:00)
[2023-09-30 09:41] LABS: BASO # 0.1 10^3/uL (0.0-0.2); BASO % 0.2 % (0.0-1.0); EOS # 0.1 10^3/uL (0.0-0.5); EOS % 0.2 % (0.0-3.0); HEMATOCRIT 43.3 % (42.0-52.0); LYMPH % 4.6 % (24.0-44.0); MEAN CORPUSCULAR HEMOGLOBIN 31.4 pg (27.0-33.0); MEAN CORPUSCULAR HGB CONC 32.3 g/dl (32.0-36.5); MEAN CORPUSCULAR VOLUME 97.1 fl (80.0-96.0); MONO # 1.1 10^3/uL (0.0-0.8); MONO % 5.2 % (2.0-8.0); NEUTROPHILS # 19.2 10^3/uL (1.5-8.5); NEUTROPHILS % 89.4 % (36.0-66.0); PLATELET COUNT, AUTOMATED 497 10^3/uL (150-450); RED BLOOD COUNT 4.46 10^6/uL (4.30-6.10); WHITE BLOOD COUNT 21.5 10^3/uL (4.0-10.0)
[2023-09-30 10:05] LABS: BLOOD UREA NITROGEN 22 MG/DL (9-23); CALCIUM LEVEL 8.9 MG/DL (8.5-10.1); CARBON DIOXIDE LEVEL 28 MMOL/L (20-31); CHLORIDE LEVEL 100 MMOL/L (98-107); GLOMERULAR FILTRATION RATE > 60.0 (>60); GLUCOSE, FASTING 167 MG/DL (60-100); POTASSIUM SERUM 4.8 MMOL/L (3.5-5.1); SODIUM LEVEL 133 MMOL/L (136-145)
[2023-09-30 10:19] VITALS: BP 141/78; TEMP 97.1; O2SAT 96
[2023-09-30] MEDS ORDERED: FLOM0.4C39 PO (10:34)
[2023-09-30] MEDS ORDERED: ONDA4TAB6 PO (10:34)
[2023-09-30] MEDS ORDERED: KETO10TAB PO (10:34)
[2023-09-30] MEDS ORDERED: CEFD300CAP PO (10:34)
== END 2023-09-30 10:55 | disposition home or self-care (01) ==
LOC: M ED 04:39
DX: N20.1 Calculus of ureter (principal); N10 Acute pyelonephritis; I10 Essential (primary) hypertension; G40.909 Epilepsy, unspecified, not intractable, without status epilepticus; E11.9 Type 2 diabetes mellitus without complications; K21.9 Gastro-esophageal reflux disease without esophagitis; Z87.442 Personal history of urinary calculi; Z88.5 Allergy status to narcotic agent; Z79.52 Long term (current) use of systemic steroids; Z79.83 Long term (current) use of bisphosphonates; Z79.4 Long term (current) use of insulin; Z79.899 Other long term (current) drug therapy; Z79.2 Long term (current) use of antibiotics
CPT/HCPCS: 74176; 80048; 81001; 85025; 87088; 87186; 96365; 96375; 99284; J0696; J1885; J2405

== ENCOUNTER → 2023-10-04 | Outpatient (REF) | payer MEDICARE, MEDICAID ==
[~2023-10-04] MED LIST changes: +CEFD300CAP PO; +FLOM0.4C39 PO; +KETO10TAB PO
[2023-10-04 16:02] LABS: APPEARANCE, URINE HAZY (CLEAR); BACTERIA, URINE AUTO 1+ (NEGATIVE); BILIRUBIN, URINE AUTO NEGATIVE (NEGATIVE); BLOOD, URINE BLOOD 2+ (NEGATIVE); COLOR, URINE YELLOW (YELLOW); GLUCOSE, URINE (UA) AUTO NEGATIVE (NEGATIVE); KETONE, URINE AUTO NEGATIVE (NEGATIVE); LEUKOCYTE ESTERASE, URINE AUTO 3+ (NEGATIVE); MUCUS, URINE SMALL (NEGATIVE); NITRITE, URINE AUTO NEGATIVE (NEGATIVE); PROTEIN, URINE AUTO 2+ mg/dL (NEGATIVE); RBC, URINE AUTO 102 /HPF (0-3); SPECIFIC GRAVITY URINE AUTO 1.013 (1.002-1.035); SQUAMOUS EPITHELIAL CELL UR AU 0 /HPF (0-6); UROBILINOGEN, URINE AUTO 0.2 mg/dL (0.0-2.0); WBC, URINE AUTO 98 /HPF (0-3)
== END ==
LOC: M SMT 15:29
PROVIDERS: ATTEND Urology
DX: N20.1 Calculus of ureter (principal)

== ENCOUNTER 2023-11-11 16:43 | Emergency (ER) | payer MEDICARE, MEDICAID ==
[~2023-11-11] VITALS: Ht 185.4 cm; Wt 172.9 kg
[~2023-11-11 16:43] MED LIST changes: -OXYB5TAB11 PO; +OXYB5TAB14 PO
[2023-11-11] MEDS ORDERED: SEMA0.257 SQ (16:55)
[2023-11-11] MEDS ORDERED: ARNU1INH PO ×2 (16:55→22:49)
[2023-11-11] MEDS ORDERED: LISI5TAB11 PO (16:56)
[2023-11-11] MEDS: ALBUTEROL SULFATE 2.5MG/0.5ML INH NEB SOLN NEB ONE (20:37)
[2023-11-11] MEDS: MAALOX 30 ML SUSP *UDC PO ONE (21:03)
[2023-11-11 21:05] LABS: BASO % 0.4 % (0.0-1.0); EOS # 0.5 10^3/uL (0.0-0.5); HEMATOCRIT 41.7 % (42.0-52.0); HEMOGLOBIN 13.6 g/dl (13.5-17.5); LYMPH # 2.7 10^3/uL (1.5-5.0); LYMPH % 25.3 % (24.0-44.0); MEAN CORPUSCULAR HEMOGLOBIN 32.5 pg (27.0-33.0); MEAN CORPUSCULAR HGB CONC 32.6 g/dl (32.0-36.5); MEAN CORPUSCULAR VOLUME 99.5 fl (80.0-96.0); MONO # 0.7 10^3/uL (0.0-0.8); MONO % 6.7 % (2.0-8.0); NEUTROPHILS # 6.6 10^3/uL (1.5-8.5); NEUTROPHILS % 62.4 % (36.0-66.0); PLATELET COUNT, AUTOMATED 310 10^3/uL (150-450); RED BLOOD COUNT 4.19 10^6/uL (4.30-6.10); WHITE BLOOD COUNT 10.6 10^3/uL (4.0-10.0)
[2023-11-11 21:27] LABS: CK-MB VALUE MASS 1.7 NG/ML (<3.6)
[2023-11-11 21:28] LABS: BLOOD UREA NITROGEN 11 MG/DL (9-23); CALCIUM LEVEL 8.9 MG/DL (8.5-10.1); CARBON DIOXIDE LEVEL 29 MMOL/L (20-31); CHLORIDE LEVEL 105 MMOL/L (98-107); CREATININE FOR GFR 1.06 MG/DL (0.70-1.30); GLOMERULAR FILTRATION RATE > 60.0 (>60); GLUCOSE, FASTING 86 MG/DL (60-100); SODIUM LEVEL 141 MMOL/L (136-145)
[2023-11-11 21:30] LABS: THYROID STIMULATING HORMONE 1.671 uIU/ML (0.55-4.78)
[2023-11-11 21:31] LABS: CPK CREATINE PHOSPHOKINASE 211 U/L (46-171)
[2023-11-11 22:17] LABS: CK-MB VALUE MASS 1.9 NG/ML (<3.6)
[2023-11-11 22:27] LABS: MB/CK RELATIVE INDEX 0.85 (< OR =4)
[2023-11-11 22:43] VITALS: BP 132/68; TEMP 98.1; O2SAT 95
[2023-11-11] MEDS ORDERED: ALBU8.5H INH (22:49)
== END 2023-11-11 22:55 | disposition home or self-care (01) ==
LOC: M ED 16:43
DX: R07.9 Chest pain, unspecified (principal); R05.9 Cough, unspecified; E11.9 Type 2 diabetes mellitus without complications; I10 Essential (primary) hypertension; K21.9 Gastro-esophageal reflux disease without esophagitis; J45.909 Unspecified asthma, uncomplicated; G40.909 Epilepsy, unspecified, not intractable, without status epilepticus; F79 Unspecified intellectual disabilities; E66.9 Obesity, unspecified; F17.200 Nicotine dependence, unspecified, uncomplicated; F12.10 Cannabis abuse, uncomplicated; Z87.442 Personal history of urinary calculi; Z88.5 Allergy status to narcotic agent; Z79.52 Long term (current) use of systemic steroids; Z79.811 Long term (current) use of aromatase inhibitors; Z79.4 Long term (current) use of insulin; Z79.899 Other long term (current) drug therapy

== ENCOUNTER → 2023-11-15 | Outpatient (CLI) | payer MEDICARE, MEDICAID ==
[~2023-11-15] MED LIST changes: +ARNU1INH PO; +LISI5TAB11 PO; +SEMA0.257 SQ
[2023-11-15 11:44] LABS: HEMATOCRIT 42.4 % (42.0-52.0); HEMOGLOBIN 13.3 g/dl (13.5-17.5); MEAN CORPUSCULAR HEMOGLOBIN 31.6 pg (27.0-33.0); MEAN CORPUSCULAR HGB CONC 31.4 g/dl (32.0-36.5); MEAN CORPUSCULAR VOLUME 100.7 fl (80.0-96.0); PLATELET COUNT, AUTOMATED 304 10^3/uL (150-450); RED BLOOD COUNT 4.21 10^6/uL (4.30-6.10); WHITE BLOOD COUNT 8.8 10^3/uL (4.0-10.0)
[2023-11-15 12:12] LABS: URIC ACID 5.7 MG/DL (3.7-9.2)
[2023-11-15 12:15] LABS: ALBUMIN 3.7 G/DL (3.2-5.2); ALKALINE PHOSPHATASE 97 U/L (46-116); ALT/SGPT 41 U/L (7.0-40); AST/SGOT 23 U/L (<34); BILIRUBIN,TOTAL 0.4 MG/DL (0.3-1.2); BLOOD UREA NITROGEN 12 MG/DL (9-23); CARBON DIOXIDE LEVEL 30 MMOL/L (20-31); CHLORIDE LEVEL 105 MMOL/L (98-107); CREATININE FOR GFR 1.16 MG/DL (0.70-1.30); GLOMERULAR FILTRATION RATE > 60.0 (>60); GLUCOSE, FASTING 101 MG/DL (60-100); POTASSIUM SERUM 4.5 MMOL/L (3.5-5.1); SODIUM LEVEL 140 MMOL/L (136-145); TOTAL PROTEIN 7.5 G/DL (5.7-8.2)
[2023-11-15 12:16] LABS: PTH INTACT 39.7 PG/ML (18.5-88.0)
== END ==
LOC: M LAB 11:13
PROVIDERS: ATTEND Urology
DX: N20.1 Calculus of ureter (principal)

== ENCOUNTER → 2023-11-21 | Outpatient (REF) | payer MEDICARE, MEDICAID | LOC: M SMT 11:47 | PROVIDERS: ATTEND Urology | DX: Z31.69 Encounter for other general counseling and advice on procreation (principal) ==

== ENCOUNTER → 2023-12-15 | Outpatient (REF) | payer MEDICARE, MEDICAID | LOC: M SMT 13:04 | PROVIDERS: ATTEND Urology | DX: Z31.69 Encounter for other general counseling and advice on procreation (principal) ==

== ENCOUNTER 2024-01-12 13:50 | Emergency (ER) | payer MEDICARE, MEDICAID ==
[2024-01-12] MEDS: IPRATROPIUM 0.5MG/ALBUTEROL 2.5MG INH SOL UD 3ML (DUONEB) NEB ONE (17:20)
[2024-01-12 18:18] VITALS: BP 138/87; TEMP 97.2; O2SAT 100
== END 2024-01-12 18:23 | disposition home or self-care (01) ==
LOC: M ED 13:50 → EDBD 13:50 → M ED 18:23
DX: J45.21 Mild intermittent asthma with (acute) exacerbation (principal); I10 Essential (primary) hypertension; E11.9 Type 2 diabetes mellitus without complications; M54.50 Low back pain, unspecified; F12.10 Cannabis abuse, uncomplicated; Z87.442 Personal history of urinary calculi; Z88.5 Allergy status to narcotic agent; Z79.52 Long term (current) use of systemic steroids; Z79.811 Long term (current) use of aromatase inhibitors; Z79.4 Long term (current) use of insulin; Z79.899 Other long term (current) drug therapy

== ENCOUNTER 2024-01-16 22:45 | Emergency (ER) | payer MEDICARE, MEDICAID ==
[~2024-01-16] VITALS: Ht 182.9 cm; Wt 165.5 kg
[2024-01-16 22:46] VITALS: TEMP 98; O2SAT 97
[2024-01-16] MEDS ORDERED: KEPP1TAB PO (23:15)
[2024-01-16 23:42] LABS: BASO % 0.4 % (0.0-1.0); EOS # 0.4 10^3/uL (0.0-0.5); EOS % 3.3 % (0.0-3.0); HEMATOCRIT 39.1 % (42.0-52.0); HEMOGLOBIN 12.9 g/dl (13.5-17.5); LYMPH # 2.8 10^3/uL (1.5-5.0); LYMPH % 25.7 % (24.0-44.0); MONO # 0.7 10^3/uL (0.0-0.8); MONO % 6.8 % (2.0-8.0); NEUTROPHILS % 63.5 % (36.0-66.0); PLATELET COUNT, AUTOMATED 328 10^3/uL (150-450); RED BLOOD COUNT 4.03 10^6/uL (4.30-6.10); WHITE BLOOD COUNT 10.9 10^3/uL (4.0-10.0)
[2024-01-17 00:04] LABS: ALBUMIN 3.6 G/DL (3.2-5.2); ALKALINE PHOSPHATASE 87 U/L (46-116); ALT/SGPT 45 U/L (7.0-40); AST/SGOT 28 U/L (<34); BILIRUBIN,TOTAL 0.4 MG/DL (0.3-1.2); BLOOD UREA NITROGEN 12 MG/DL (9-23); CARBON DIOXIDE LEVEL 25 MMOL/L (20-31); CHLORIDE LEVEL 103 MMOL/L (98-107); CREATININE FOR GFR 0.97 MG/DL (0.70-1.30); GLOMERULAR FILTRATION RATE > 60.0 (>60); GLUCOSE, FASTING 92 MG/DL (60-100); POTASSIUM SERUM 3.5 MMOL/L (3.5-5.1); SODIUM LEVEL 137 MMOL/L (136-145); TOTAL PROTEIN 7.1 G/DL (5.7-8.2)
[2024-01-17] MEDS: KETOROLAC 60MG 2ML VIAL IM ONE (02:21)
[2024-01-17] MEDS ORDERED: CIPR-249 PO (03:06)
[2024-01-17] MEDS: CIPROFLOXACIN 500MG TABLET PO ONE (03:19)
[2024-01-17 03:23] VITALS: BP 141/85
== END 2024-01-17 03:24 | disposition home or self-care (01) ==
LOC: M ED 22:45
DX: N10 Acute pyelonephritis (principal); E11.9 Type 2 diabetes mellitus without complications; I10 Essential (primary) hypertension; G40.909 Epilepsy, unspecified, not intractable, without status epilepticus; F32.A Depression, unspecified; Z87.442 Personal history of urinary calculi; Z79.4 Long term (current) use of insulin; Z88.5 Allergy status to narcotic agent; Z79.52 Long term (current) use of systemic steroids; Z79.811 Long term (current) use of aromatase inhibitors; Z79.899 Other long term (current) drug therapy
CPT/HCPCS: 74176; 80053; 81001; 85025; 87088; 87186; 96372; 99283; J1885

== ENCOUNTER 2024-01-22 15:20 | Emergency (ER) | payer MEDICARE, MEDICAID ==
[~2024-01-22] VITALS: Ht 182.9 cm; Wt 163.6 kg
[~2024-01-22 15:20] MED LIST changes: +CIPR-249 PO; +KEPP1TAB PO
[2024-01-22] MEDS ORDERED: CIPR-249 PO ×2 (16:53→17:00)
[2024-01-22] MEDS ORDERED: VENTAER INH (16:53)
[2024-01-22] MEDS ORDERED: ARNU1INH INH (16:53)
[2024-01-22] MEDS ORDERED: AMLO1TAB24 PO (16:54)
[2024-01-22] MEDS ORDERED: HOME MED LIST COMPLETE! XX SCH (17:00)
[2024-01-22 17:26] VITALS: BP 122/64; TEMP 98.2; O2SAT 99
== END 2024-01-22 17:28 | disposition home or self-care (01) ==
LOC: EDBD 15:20 → M ED 15:20
DX: N41.1 Chronic prostatitis (principal); I10 Essential (primary) hypertension; K21.9 Gastro-esophageal reflux disease without esophagitis; G40.909 Epilepsy, unspecified, not intractable, without status epilepticus; E66.9 Obesity, unspecified; F12.10 Cannabis abuse, uncomplicated; Z87.891 Personal history of nicotine dependence; Z88.5 Allergy status to narcotic agent; Z87.442 Personal history of urinary calculi; Z79.2 Long term (current) use of antibiotics; Z79.52 Long term (current) use of systemic steroids; Z79.4 Long term (current) use of insulin; Z79.899 Other long term (current) drug therapy

== ENCOUNTER 2024-01-25 13:51 | Outpatient (RCR) | payer MEDICARE, MEDICAID ==
[~2024-01-25 13:51] MED LIST changes: +AMLO1TAB24 PO; +ARNU1INH INH; +VENTAER INH
== END 2024-02-03 ==
LOC: M PT 13:51
PROVIDERS: ATTEND Physician Assistant
DX: M48.04 Spinal stenosis, thoracic region (principal); M79.10 Myalgia, unspecified site

== ENCOUNTER 2024-02-05 19:08 | Emergency (ER) | payer MEDICARE, MEDICAID ==
[~2024-02-05] VITALS: Ht 182.9 cm; Wt 160.7 kg
[2024-02-05 19:08] VITALS: BP 143/86; TEMP 98.3; O2SAT 96
[~2024-02-05 19:08] MED LIST changes: +ONDA-282 PO; -ONDA4TAB6 PO
[2024-02-05] MEDS: methocarbamoL 500 MG TAB PO ONE (20:37)
[2024-02-05] MEDS: KETOROLAC 30 MG/ML 1ML VIAL IM ONE (20:37)
[2024-02-05 21:00] LABS: BASO % 0.3 % (0.0-1.0); EOS # 0.2 10^3/uL (0.0-0.5); HEMATOCRIT 41.4 % (42.0-52.0); HEMOGLOBIN 13.7 g/dl (13.5-17.5); LYMPH # 2.1 10^3/uL (1.5-5.0); LYMPH % 18.7 % (24.0-44.0); MEAN CORPUSCULAR HEMOGLOBIN 32.5 pg (27.0-33.0); MEAN CORPUSCULAR HGB CONC 33.1 g/dl (32.0-36.5); MEAN CORPUSCULAR VOLUME 98.1 fl (80.0-96.0); MONO # 0.9 10^3/uL (0.0-0.8); MONO % 8.1 % (2.0-8.0); NEUTROPHILS # 8.1 10^3/uL (1.5-8.5); NEUTROPHILS % 70.7 % (36.0-66.0); PLATELET COUNT, AUTOMATED 354 10^3/uL (150-450); RED BLOOD COUNT 4.22 10^6/uL (4.30-6.10); WHITE BLOOD COUNT 11.4 10^3/uL (4.0-10.0)
[2024-02-05 21:40] LABS: ALBUMIN 4.1 G/DL (3.2-5.2); ALKALINE PHOSPHATASE 93 U/L (46-116); ALT/SGPT 32 U/L (7.0-40); AST/SGOT 17 U/L (<34); BILIRUBIN,TOTAL 0.4 MG/DL (0.3-1.2); BLOOD UREA NITROGEN 12 MG/DL (9-23); CALCIUM LEVEL 9.6 MG/DL (8.5-10.1); CARBON DIOXIDE LEVEL 28 MMOL/L (20-31); CHLORIDE LEVEL 106 MMOL/L (98-107); CREATININE FOR GFR 0.91 MG/DL (0.70-1.30); GLOMERULAR FILTRATION RATE > 60.0 (>60); GLUCOSE, FASTING 108 MG/DL (60-100); LIPASE 279 U/L (12-53); POTASSIUM SERUM 3.7 MMOL/L (3.5-5.1); SODIUM LEVEL 141 MMOL/L (136-145); TOTAL PROTEIN 7.9 G/DL (5.7-8.2)
[2024-02-05] MEDS ORDERED: NAPR-885 PO (21:41)
== END 2024-02-05 21:58 | disposition home or self-care (01) ==
LOC: M ED 19:08
DX: M62.838 Other muscle spasm (principal); R74.8 Abnormal levels of other serum enzymes; E11.9 Type 2 diabetes mellitus without complications; I10 Essential (primary) hypertension; J45.909 Unspecified asthma, uncomplicated; G40.909 Epilepsy, unspecified, not intractable, without status epilepticus; Z87.442 Personal history of urinary calculi; F12.10 Cannabis abuse, uncomplicated; Z88.5 Allergy status to narcotic agent; Z79.52 Long term (current) use of systemic steroids; Z79.4 Long term (current) use of insulin; Z79.899 Other long term (current) drug therapy
CPT/HCPCS: 72052; 80053; 83690; 83735; 85025; 96372; 99283; J1885

== ENCOUNTER 2024-02-08 20:59 | Emergency (ER) | payer MEDICARE, MEDICAID ==
[~2024-02-08] VITALS: Ht 182.9 cm; Wt 162.3 kg
[~2024-02-08 20:59] MED LIST changes: +NAPR-885 PO
[2024-02-09 02:12] VITALS: BP 137/85; TEMP 97.2; O2SAT 98
[2024-02-10] MEDS ORDERED: CEPH500C PO (15:17)
== END 2024-02-09 02:46 | disposition left against medical advice (07) ==
LOC: M ED 20:59
DX: Z53.21 Procedure and treatment not carried out due to patient leaving prior to being seen by health care provider (principal)

== ENCOUNTER 2024-02-10 10:15 | Emergency (ER) | payer MEDICARE, MEDICAID ==
[~2024-02-10] VITALS: Ht 182.9 cm; Wt 162.3 kg
[2024-02-10 11:39] LABS: BASO % 0.5 % (0.0-1.0); EOS # 0.2 10^3/uL (0.0-0.5); EOS % 1.8 % (0.0-3.0); HEMOGLOBIN 14.6 g/dl (13.5-17.5); LYMPH # 1.8 10^3/uL (1.5-5.0); LYMPH % 20.9 % (24.0-44.0); MEAN CORPUSCULAR HEMOGLOBIN 32.2 pg (27.0-33.0); MEAN CORPUSCULAR HGB CONC 32.4 g/dl (32.0-36.5); MEAN CORPUSCULAR VOLUME 99.1 fl (80.0-96.0); MONO # 0.4 10^3/uL (0.0-0.8); MONO % 4.3 % (2.0-8.0); NEUTROPHILS # 6.4 10^3/uL (1.5-8.5); NEUTROPHILS % 72.3 % (36.0-66.0); PLATELET COUNT, AUTOMATED 335 10^3/uL (150-450); RED BLOOD COUNT 4.54 10^6/uL (4.30-6.10); WHITE BLOOD COUNT 8.8 10^3/uL (4.0-10.0)
[2024-02-10 12:07] LABS: LIPASE 293 U/L (12-53)
[2024-02-10 12:09] LABS: ALBUMIN 3.9 G/DL (3.2-5.2); ALKALINE PHOSPHATASE 101 U/L (46-116); ALT/SGPT 30 U/L (7.0-40); AST/SGOT 14 U/L (<34); BILIRUBIN,DIRECT 0.2 MG/DL (<0.4); BILIRUBIN,TOTAL 0.6 MG/DL (0.3-1.2); BLOOD UREA NITROGEN 14 MG/DL (9-23); CALCIUM LEVEL 9.7 MG/DL (8.5-10.1); CARBON DIOXIDE LEVEL 30 MMOL/L (20-31); CHLORIDE LEVEL 105 MMOL/L (98-107); CREATININE FOR GFR 0.87 MG/DL (0.70-1.30); GLOMERULAR FILTRATION RATE > 60.0 (>60); GLUCOSE, FASTING 104 MG/DL (60-100); SODIUM LEVEL 142 MMOL/L (136-145); TOTAL PROTEIN 7.8 G/DL (5.7-8.2)
[2024-02-10 15:12] LABS: APPEARANCE, URINE CLEAR (CLEAR); BACTERIA, URINE AUTO NEGATIVE (NEGATIVE); BILIRUBIN, URINE AUTO NEGATIVE (NEGATIVE); BLOOD, URINE BLOOD 2+ (NEGATIVE); COLOR, URINE STRAW (YELLOW); GLUCOSE, URINE (UA) AUTO NEGATIVE (NEGATIVE); KETONE, URINE AUTO NEGATIVE (NEGATIVE); LEUKOCYTE ESTERASE, URINE AUTO 3+ (NEGATIVE); MUCUS, URINE SMALL (NEGATIVE); NITRITE, URINE AUTO NEGATIVE (NEGATIVE); PROTEIN, URINE AUTO NEGATIVE (NEGATIVE); RBC, URINE AUTO 58 /HPF (0-3); SPECIFIC GRAVITY URINE AUTO 1.011 (1.002-1.035); SQUAMOUS EPITHELIAL CELL UR AU 1 /HPF (0-6); UROBILINOGEN, URINE AUTO 0.2 mg/dL (0.0-2.0); WBC, URINE AUTO 31 /HPF (0-3)
[2024-02-10] MEDS ORDERED: CEPH500C PO (15:17)
[2024-02-10 15:24] VITALS: BP 139/74; TEMP 97.2; O2SAT 97
== END 2024-02-10 15:25 | disposition home or self-care (01) ==
LOC: M ED 10:15 → EDBD 10:15 → M ED 15:25
DX: R53.1 Weakness (principal); R00.1 Bradycardia, unspecified; N39.0 Urinary tract infection, site not specified; I45.10 Unspecified right bundle-branch block; E11.9 Type 2 diabetes mellitus without complications; I10 Essential (primary) hypertension; K21.9 Gastro-esophageal reflux disease without esophagitis; J45.909 Unspecified asthma, uncomplicated; G40.909 Epilepsy, unspecified, not intractable, without status epilepticus; Z87.442 Personal history of urinary calculi; Z88.5 Allergy status to narcotic agent; Z79.52 Long term (current) use of systemic steroids; Z79.4 Long term (current) use of insulin; Z79.2 Long term (current) use of antibiotics; Z79.899 Other long term (current) drug therapy

== ENCOUNTER 2024-02-14 09:41 | Outpatient (RCR) | payer MEDICARE, MEDICAID ==
[~2024-02-14 09:41] MED LIST changes: +CEPH500C PO
== END 2024-03-04 ==
LOC: M PT 09:41
PROVIDERS: ATTEND Physician Assistant
DX: M48.04 Spinal stenosis, thoracic region (principal); M79.10 Myalgia, unspecified site

== ENCOUNTER 2024-03-10 12:08 | Emergency (ER) | payer MEDICARE, MEDICAID ==
[~2024-03-10] VITALS: Ht 182.9 cm; Wt 165.4 kg
[2024-03-10 12:20] VITALS: TEMP 96.6
[2024-03-10 12:51] LABS: HEMATOCRIT 41.3 % (42.0-52.0); HEMOGLOBIN 13.3 g/dl (13.5-17.5); MEAN CORPUSCULAR HEMOGLOBIN 32.5 pg (27.0-33.0); MEAN CORPUSCULAR HGB CONC 32.2 g/dl (32.0-36.5); PLATELET COUNT, AUTOMATED 315 10^3/uL (150-450); RED BLOOD COUNT 4.09 10^6/uL (4.30-6.10); WHITE BLOOD COUNT 10.3 10^3/uL (4.0-10.0)
[2024-03-10] MEDS: predniSONE 20 MG TAB PO ONE (13:28)
[2024-03-10 13:57] VITALS: BP 117/65; O2SAT 99
== END 2024-03-10 13:59 | disposition home or self-care (01) ==
LOC: M ED 12:08 → EDBD 12:08 → M ED 13:59
DX: J45.901 Unspecified asthma with (acute) exacerbation (principal); E11.9 Type 2 diabetes mellitus without complications; I10 Essential (primary) hypertension; G40.909 Epilepsy, unspecified, not intractable, without status epilepticus; F12.10 Cannabis abuse, uncomplicated; Z88.5 Allergy status to narcotic agent; Z79.52 Long term (current) use of systemic steroids; Z79.4 Long term (current) use of insulin; Z79.1 Long term (current) use of non-steroidal anti-inflammatories (NSAID); Z79.899 Other long term (current) drug therapy
CPT/HCPCS: 36415; 71046; 85027; 87486; 87581; 87633; 87798; 99284; J7512

== ENCOUNTER → 2024-04-04 | Outpatient (RCR) | payer MEDICARE, MEDICAID | LOC: M PT 03-21 12:41 | PROVIDERS: ATTEND Physician Assistant | DX: M48.04 Spinal stenosis, thoracic region (principal) ==

== ENCOUNTER 2024-04-05 11:43 | Emergency (ER) | payer MEDICARE, MEDICAID ==
[~2024-04-05] VITALS: Ht 182.9 cm; Wt 119.1 kg
[2024-04-05 14:55] LABS: BASO # 0.1 10^3/uL (0.0-0.2); BASO % 0.6 % (0.0-1.0); EOS # 0.2 10^3/uL (0.0-0.5); EOS % 2.8 % (0.0-3.0); HEMATOCRIT 43.8 % (42.0-52.0); HEMOGLOBIN 14.3 g/dl (13.5-17.5); LYMPH # 2.3 10^3/uL (1.5-5.0); LYMPH % 26.7 % (24.0-44.0); MEAN CORPUSCULAR HEMOGLOBIN 32.5 pg (27.0-33.0); MEAN CORPUSCULAR HGB CONC 32.6 g/dl (32.0-36.5); MEAN CORPUSCULAR VOLUME 99.5 fl (80.0-96.0); MONO # 0.5 10^3/uL (0.0-0.8); MONO % 5.7 % (2.0-8.0); NEUTROPHILS # 5.5 10^3/uL (1.5-8.5); WHITE BLOOD COUNT 8.6 10^3/uL (4.0-10.0)
[2024-04-05 15:17] LABS: ALBUMIN 3.8 G/DL (3.2-5.2); ALKALINE PHOSPHATASE 96 U/L (46-116); ALT/SGPT 29 U/L (7.0-40); AST/SGOT 21 U/L (<34); BILIRUBIN,TOTAL 0.5 MG/DL (0.3-1.2); BLOOD UREA NITROGEN 17 MG/DL (9-23); CALCIUM LEVEL 9.3 MG/DL (8.5-10.1); CARBON DIOXIDE LEVEL 26 MMOL/L (20-31); CHLORIDE LEVEL 107 MMOL/L (98-107); CREATININE FOR GFR 0.99 MG/DL (0.70-1.30); GLOMERULAR FILTRATION RATE > 60.0 (>60); GLUCOSE, FASTING 84 MG/DL (60-100); POTASSIUM SERUM 3.7 MMOL/L (3.5-5.1); SODIUM LEVEL 140 MMOL/L (136-145); TOTAL PROTEIN 7.6 G/DL (5.7-8.2)
[2024-04-05 16:23] VITALS: BP 157/92; TEMP 96.5; O2SAT 98
== END 2024-04-05 16:25 | disposition home or self-care (01) ==
LOC: EDBD 11:43 → M ED 11:43
DX: R42 Dizziness and giddiness (principal); I49.8 Other specified cardiac arrhythmias; I45.10 Unspecified right bundle-branch block; E11.9 Type 2 diabetes mellitus without complications; J45.909 Unspecified asthma, uncomplicated; G40.909 Epilepsy, unspecified, not intractable, without status epilepticus; G47.33 Obstructive sleep apnea (adult) (pediatric); Z87.442 Personal history of urinary calculi; Z88.5 Allergy status to narcotic agent; Z79.52 Long term (current) use of systemic steroids; Z79.4 Long term (current) use of insulin; Z79.899 Other long term (current) drug therapy

== ENCOUNTER → 2024-04-06 | Outpatient (REF) | payer MEDICARE, MEDICAID ==
[2024-04-06 18:05] LABS: HEMOGLOBIN A1c 5.7 % (4.0-6.0)
[2024-04-09 10:08] LABS: ALKALINE PHOSPHATASE 95 U/L (46-116); ALT/SGPT 30 U/L (7.0-40); AST/SGOT 17 U/L (<34); BILIRUBIN,TOTAL 0.5 MG/DL (0.3-1.2); BLOOD UREA NITROGEN 15 MG/DL (9-23); CALCIUM LEVEL 9.3 MG/DL (8.5-10.1); CARBON DIOXIDE LEVEL 29 MMOL/L (20-31); CHLORIDE LEVEL 106 MMOL/L (98-107); CHOLESTEROL LEVEL 147 MG/DL (<200); CHOLESTEROL RISK RATIO 3.04 (<5); CREATININE FOR GFR 0.92 MG/DL (0.70-1.30); GLOMERULAR FILTRATION RATE > 60.0 (>60); GLUCOSE, FASTING 84 MG/DL (60-100); HDL CHOLESTEROL 48.2 MG/DL (>40); LDL CHOLESTEROL 75.6 MG/DL (<100); NON-HDL-C 98.8 MG/DL; POTASSIUM SERUM 4.1 MMOL/L (3.5-5.1); SODIUM LEVEL 140 MMOL/L (136-145); TOTAL PROTEIN 7.6 G/DL (5.7-8.2); TRIGLYCERIDES LEVEL 116 MG/DL (<150)
[2024-04-09 10:09] LABS: FREE T4 1.12 NG/DL (0.89-1.76)
[2024-04-09 10:10] LABS: THYROID STIMULATING HORMONE 1.118 uIU/ML (0.55-4.78)
== END ==
LOC: M LAB REF 16:24
PROVIDERS: ATTEND Nurse Practitioner Family
DX: E11.9 Type 2 diabetes mellitus without complications (principal); R00.1 Bradycardia, unspecified

== ENCOUNTER → 2024-04-12 | Outpatient (CLI) | payer MEDICARE, MEDICAID ==
[~2024-04-12] MED LIST changes: +ACET325C5 PO; +AMOX875T2 PO; +ASPI81TAEC PO; +ATOR1TAB21 PO; +BENA25TA5 PO; +PEPC1TAB5 PO
== END ==
LOC: M EKG 11:10
PROVIDERS: ATTEND Nurse Practitioner Family
DX: R00.1 Bradycardia, unspecified (principal)

== ENCOUNTER 2024-04-18 05:53 | Emergency (ER) | payer MEDICARE, MEDICAID ==
[~2024-04-18] VITALS: Ht 182.9 cm; Wt 165.4 kg
[~2024-04-18 05:53] MED LIST changes: -ACET325C5 PO; -AMOX875T2 PO; -ASPI81TAEC PO; -ATOR1TAB21 PO; -BENA25TA5 PO; -PEPC1TAB5 PO
[2024-04-18 08:06] VITALS: BP 159/97; TEMP 96.7; O2SAT 100
[2024-04-18] MEDS: predniSONE 20 MG TAB PO ONE (08:12)
[2024-04-18] MEDS: FAMOTIDINE 20 MG TAB PO ONE (08:12)
[2024-04-18] MEDS: diphenhydrAMINE 50MG CAP PO ONE (08:12)
[2024-04-18] MEDS ORDERED: BENA25TA5 PO (09:09)
[2024-04-18] MEDS ORDERED: PEPC1TAB5 PO (09:09)
== END 2024-04-18 09:54 | disposition home or self-care (01) ==
LOC: M ED 05:53
DX: L50.9 Urticaria, unspecified (principal); E11.9 Type 2 diabetes mellitus without complications; I10 Essential (primary) hypertension; K21.9 Gastro-esophageal reflux disease without esophagitis; F41.9 Anxiety disorder, unspecified; F79 Unspecified intellectual disabilities; G40.909 Epilepsy, unspecified, not intractable, without status epilepticus; G47.33 Obstructive sleep apnea (adult) (pediatric); Z79.52 Long term (current) use of systemic steroids; Z79.4 Long term (current) use of insulin; Z79.899 Other long term (current) drug therapy
CPT/HCPCS: 99284; J7512

== ENCOUNTER 2024-04-18 12:32 | Outpatient (RCR) | payer MEDICARE, MEDICAID ==
[~2024-04-18 12:32] MED LIST changes: +BENA25TA5 PO; +PEPC1TAB5 PO
[2024-04-26] MEDS ORDERED: ACET325C5 PO (12:29)
[2024-04-26] MEDS ORDERED: IBUP-1022 PO (12:29)
[2024-05-03] MEDS ORDERED: ASPI81TAEC PO (13:01)
[2024-05-03] MEDS ORDERED: AMOX875T2 PO (13:01)
[2024-05-03] MEDS ORDERED: ATOR1TAB21 PO (13:01)
== END 2024-05-05 ==
LOC: M PT 12:32
PROVIDERS: ATTEND Physician Assistant
DX: M48.04 Spinal stenosis, thoracic region (principal)

== ENCOUNTER 2024-04-26 10:46 | Emergency (ER) | payer MEDICARE, MEDICAID ==
[~2024-04-26] VITALS: Ht 182.9 cm; Wt 163.6 kg
[2024-04-26] MEDS ORDERED: ACET325C5 PO (12:29)
[2024-04-26] MEDS ORDERED: IBUP-1022 PO (12:29)
[2024-04-26 12:45] VITALS: BP 132/76; TEMP 98.7; O2SAT 99
== END 2024-04-26 12:48 | disposition home or self-care (01) ==
LOC: EDBD 10:46 → M ED 10:46
DX: U07.1 COVID-19 (principal); J02.9 Acute pharyngitis, unspecified; I45.10 Unspecified right bundle-branch block; I10 Essential (primary) hypertension; K21.9 Gastro-esophageal reflux disease without esophagitis; G40.909 Epilepsy, unspecified, not intractable, without status epilepticus; G47.33 Obstructive sleep apnea (adult) (pediatric); F12.10 Cannabis abuse, uncomplicated; Z88.5 Allergy status to narcotic agent; Z79.52 Long term (current) use of systemic steroids; Z79.4 Long term (current) use of insulin; Z79.899 Other long term (current) drug therapy

== ENCOUNTER 2024-05-01 15:31 | Inpatient (IN) | payer MEDICARE, MEDICAID ==
[~2024-05-01] VITALS: Ht 182.9 cm; Wt 167.5 kg
[~2024-05-01 15:31] MED LIST changes: +ACET325C5 PO
[2024-05-01] MEDS ORDERED: ISOVUE-370 76% 100ML VIAL As Ordered ONE (16:05)
[2024-05-01 16:45] VITALS: BP 153/93; TEMP 96.7; O2SAT 97
[2024-05-01 16:54] LABS: BASO % 0.2 % (0.0-1.0); EOS # 0.2 10^3/uL (0.0-0.5); EOS % 1.5 % (0.0-3.0); HEMATOCRIT 42.6 % (42.0-52.0); HEMOGLOBIN 13.9 g/dl (13.5-17.5); LYMPH # 2.6 10^3/uL (1.5-5.0); LYMPH % 19.7 % (24.0-44.0); MEAN CORPUSCULAR HEMOGLOBIN 31.6 pg (27.0-33.0); MEAN CORPUSCULAR HGB CONC 32.6 g/dl (32.0-36.5); MEAN CORPUSCULAR VOLUME 96.8 fl (80.0-96.0); MONO # 0.9 10^3/uL (0.0-0.8); MONO % 6.6 % (2.0-8.0); NEUTROPHILS # 9.3 10^3/uL (1.5-8.5); NEUTROPHILS % 71.7 % (36.0-66.0); PLATELET COUNT, AUTOMATED 321 10^3/uL (150-450)
[2024-05-01 17:14] LABS: INR 1.03; PARTIAL THROMBOPLASTIN TIME 27.4 SECONDS (24.8-34.2); PROTHROMBIN TIME 13.2 SECONDS (12.5-14.5)
[2024-05-01 17:29] LABS: ALBUMIN 3.7 G/DL (3.2-5.2); ALKALINE PHOSPHATASE 86 U/L (46-116); ALT/SGPT 29 U/L (7.0-40); AST/SGOT 38 U/L (<34); BILIRUBIN,DIRECT 0.1 MG/DL (<0.4); BILIRUBIN,TOTAL 0.5 MG/DL (0.3-1.2); BLOOD UREA NITROGEN 14 MG/DL (9-23); CALCIUM LEVEL 8.9 MG/DL (8.5-10.1); CARBON DIOXIDE LEVEL 27 MMOL/L (20-31); CHLORIDE LEVEL 104 MMOL/L (98-107); CK-MB VALUE MASS 1.1 NG/ML (<3.6); CPK CREATINE PHOSPHOKINASE 180 U/L (46-171); CREATININE FOR GFR 0.81 MG/DL (0.70-1.30); FREE T4 1.27 NG/DL (0.89-1.76); GLOMERULAR FILTRATION RATE > 60.0 (>60); GLUCOSE, FASTING 84 MG/DL (60-100); MB/CK RELATIVE INDEX 0.61 (< OR =4); POTASSIUM SERUM 4.8 MMOL/L (3.5-5.1); SODIUM LEVEL 134 MMOL/L (136-145); THYROID STIMULATING HORMONE 0.473 uIU/ML (0.55-4.78)
[2024-05-01] MEDS: CLOPIDOGREL 300 MG TAB (PLAVIX) PO STA (18:37)
[2024-05-01] MEDS: ASPIRIN 325 MG TAB PO ONE (18:37)
[2024-05-01] MEDS ORDERED: ALBUTEROL 90 MCG/ACT 8GM HFA INHALER INH PRN (18:55)
[2024-05-01 19:08] VITALS: BP 153/93; TEMP 96.7; O2SAT 98
[2024-05-01] MEDS ORDERED: HOME MED LIST COMPLETE! XX SCH (19:20)
[2024-05-01 19:58] LABS: HEMOGLOBIN A1c 5.7 % (4.0-6.0)
[2024-05-01] MEDS: ATORVASTATIN 20 MG TAB PO SCH (21:00)
[2024-05-01] MEDS: levETIRAcetam 250MG TABLET (KEPPRA) PO SCH (21:37)
[2024-05-01 22:59] VITALS: BP 158/63; TEMP 97.2; O2SAT 98
[2024-05-02] VITALS: BP 125/68; TEMP 97; O2SAT 95
[2024-05-02 04:00] VITALS: BP 134/73; TEMP 97.4; O2SAT 96
[2024-05-02 06:40] LABS: BLOOD UREA NITROGEN 14 MG/DL (9-23); CALCIUM LEVEL 8.5 MG/DL (8.5-10.1); CARBON DIOXIDE LEVEL 27 MMOL/L (20-31); CHLORIDE LEVEL 104 MMOL/L (98-107); CHOLESTEROL LEVEL 146 MG/DL (<200); CREATININE FOR GFR 0.93 MG/DL (0.70-1.30); GLOMERULAR FILTRATION RATE > 60.0 (>60); GLUCOSE, FASTING 105 MG/DL (60-100); HDL CHOLESTEROL 41.7 MG/DL (>40); LDL CHOLESTEROL 85.3 MG/DL (<100); MAGNESIUM LEVEL 1.9 MG/DL (1.8-2.4); NON-HDL-C 104.3 MG/DL; POTASSIUM SERUM 3.9 MMOL/L (3.5-5.1); SODIUM LEVEL 137 MMOL/L (136-145); TRIGLYCERIDES LEVEL 95 MG/DL (<150)
[2024-05-02 06:44] LABS: BASO % 0.3 % (0.0-1.0); EOS # 0.2 10^3/uL (0.0-0.5); EOS % 2.6 % (0.0-3.0); HEMATOCRIT 39.1 % (42.0-52.0); HEMOGLOBIN 12.8 g/dl (13.5-17.5); LYMPH # 2.4 10^3/uL (1.5-5.0); LYMPH % 26.1 % (24.0-44.0); MEAN CORPUSCULAR HGB CONC 32.7 g/dl (32.0-36.5); MEAN CORPUSCULAR VOLUME 97.8 fl (80.0-96.0); MONO # 0.7 10^3/uL (0.0-0.8); MONO % 7.7 % (2.0-8.0); NEUTROPHILS # 5.7 10^3/uL (1.5-8.5); NEUTROPHILS % 63.1 % (36.0-66.0); PLATELET COUNT, AUTOMATED 299 10^3/uL (150-450); WHITE BLOOD COUNT 9.1 10^3/uL (4.0-10.0)
[2024-05-02] MEDS: HEPARIN SOD (PORCINE) 5000UNITS/ML 1ML VIAL/SYRINGE SQ SCH (08:07)
[2024-05-02] MEDS: CLOPIDOGREL 75 MG TAB PO SCH (08:08)
[2024-05-02] MEDS: ASPIRIN 81MG ENTERIC TABLET PO SCH (08:08)
[2024-05-02 12:17] VITALS: BP 135/83; TEMP 97.4; O2SAT 97
[2024-05-02 16:08] VITALS: BP 125/77; TEMP 97.8; O2SAT 97
[2024-05-02 20:00] VITALS: BP 132/67; TEMP 97.4; O2SAT 95
[2024-05-02] MEDS: ATORVASTATIN 20 MG TAB PO SCH (20:42)
[2024-05-02] MEDS: AUGMENTIN 875 MG TAB PO SCH (20:43)
[2024-05-02 23:54] VITALS: BP 138/79; TEMP 97.4; O2SAT 93
[2024-05-03] MEDS ORDERED: ACETAMINOPHEN *IV* 1,000 MG in IV 1 EA IV ONE (03:55)
[2024-05-03 03:59] VITALS: BP 121/76; TEMP 97.6; O2SAT 93
[2024-05-03] MEDS ORDERED: GLUCOSE 4 GM CHEW PO PRN (04:05)
[2024-05-03] MEDS ORDERED: DEXTROSE 50% 50ML SYRINGE IV PRN (04:05)
[2024-05-03] MEDS ORDERED: GLUCAGON INJ 1MG VIAL SC PRN (04:05)
[2024-05-03 07:51] VITALS: BP 134/79; TEMP 96.6; O2SAT 92
[2024-05-03] MEDS ORDERED: AMOX875T2 PO (13:01)
[2024-05-03] MEDS ORDERED: ASPI81TAEC PO (13:01)
[2024-05-03] MEDS ORDERED: ATOR1TAB21 PO (13:01)
[2024-05-03 14:05] LABS: INR 0.99; PARTIAL THROMBOPLASTIN TIME 25.5 SECONDS (24.8-34.2); PROTHROMBIN TIME 12.8 SECONDS (12.5-14.5)
[2024-05-04 14:07] LABS: SSA SJOGRENS A <1.0 NEG AI (<1.0 NEG); SSB SJOGRENS B <1.0 NEG AI (<1.0 NEG)
[2024-05-04 15:48] LABS: ANA SCREEN, IFA NEGATIVE (NEGATIVE)
[2024-05-04 16:11] LABS: HOMOCYST(E)INE SERUM 13.3 umol/L (<11.4)
[2024-05-04 22:46] LABS: CARDIOLIPIN IGA ANTIBODY < 2.0 APL-U/mL (<20.0); CARDIOLIPIN IGG ANTIBODY < 2.0 GPL-U/mL (<20.0); CARDIOLIPIN IGM ANTIBODY < 2.0 MPL-U/mL (<20.0)
[2024-05-08 10:55] LABS: DRVV SCREEN 36.9 SECONDS
[2024-05-08 11:37] LABS: PTT LUPUS TYPE ANTICOAG SCREEN 0.95 (0-1.20)
[2024-05-08 18:12] LABS: PROTEIN C ANTIGEN 115 % normal (70-140)
[2024-05-09 01:01] LABS: ANCA SCREEN Negative (Negative)
[2024-05-09 11:02] LABS: ANTI THROMBIN 3 ANTIGEN IMMUNO 93 % normal (80-120); ANTI THROMBIN 3 FUNCT ACTIVITY 112 % normal (80-135)
[2024-05-09 14:57] LABS: PROTEIN S ANTIGEN FREE 94 % normal (57-171); PROTEIN S ANTIGEN TOTAL 120 % normal (70-140)
[2024-05-10 01:53] LABS: FACTOR V LEIDEN FOR MEDINET NEGATIVE
[2024-05-11 15:22] LABS: FACTOR II PROTHROMBIN GENE AN NEGATIVE
== END 2024-05-03 16:40 | disposition home or self-care (01) | DRG 69 ==
LOC: M ED 15:31 → EDBD 15:31 → M ED INP 18:16 → M PCU 22:53
PROVIDERS: ADMIT Student in an Organized Health Care Education/Training Program; ATTEND Student in an Organized Health Care Education/Training Program
DX: G45.9 Transient cerebral ischemic attack, unspecified (principal); G40.909 Epilepsy, unspecified, not intractable, without status epilepticus; F32.9 Major depressive disorder, single episode, unspecified; J32.2 Chronic ethmoidal sinusitis; J45.909 Unspecified asthma, uncomplicated; I10 Essential (primary) hypertension; E66.01 Morbid (severe) obesity due to excess calories; R47.1 Dysarthria and anarthria; K21.9 Gastro-esophageal reflux disease without esophagitis; E11.9 Type 2 diabetes mellitus without complications; I16.0 Hypertensive urgency; F41.9 Anxiety disorder, unspecified; G47.30 Sleep apnea, unspecified; Z79.899 Other long term (current) drug therapy; Z88.5 Allergy status to narcotic agent

== ENCOUNTER 2024-06-22 11:04 | Emergency (ER) | payer MEDICARE, MEDICAID ==
[~2024-06-22] VITALS: Ht 182.9 cm; Wt 168.7 kg
[~2024-06-22 11:04] MED LIST changes: +AMOX875T2 PO; +ASPI81TAEC PO; +ATOR1TAB21 PO
[2024-06-22] MEDS ORDERED: LISI5TAB11 (11:13)
[2024-06-22] MEDS ORDERED: TIRZ2.5P (11:13)
[2024-06-22] MEDS: BOOSTRIX VACCINE (TETANUS/DIPHTH/ACEL. PERTUSSIS) 0.5ML SYR IM.IMMUN ONE (12:31)
[2024-06-22 12:36] VITALS: BP 135/68; TEMP 97.9; O2SAT 99
== END 2024-06-22 12:40 | disposition home or self-care (01) ==
LOC: M ED 11:04
DX: S30.811A Abrasion of abdominal wall, initial encounter (principal); W19.XXXA Unspecified fall, initial encounter; E11.9 Type 2 diabetes mellitus without complications; I10 Essential (primary) hypertension; J45.909 Unspecified asthma, uncomplicated; E03.9 Hypothyroidism, unspecified; K21.9 Gastro-esophageal reflux disease without esophagitis; G43.909 Migraine, unspecified, not intractable, without status migrainosus; F12.10 Cannabis abuse, uncomplicated; Z87.442 Personal history of urinary calculi; Z86.79 Personal history of other diseases of the circulatory system; Z88.5 Allergy status to narcotic agent; Z79.52 Long term (current) use of systemic steroids; Z79.4 Long term (current) use of insulin; Z79.811 Long term (current) use of aromatase inhibitors; Z79.899 Other long term (current) drug therapy; Y92.009 Unspecified place in unspecified non-institutional (private) residence as the place of occurrence of the external cause; Y93.89 Activity, other specified; Y99.9 Unspecified external cause status; Z23 Encounter for immunization

== ENCOUNTER 2024-06-27 00:27 | Emergency (ER) | payer MEDICAID, MEDICARE ==
[~2024-06-27] VITALS: Ht 182.9 cm; Wt 170.1 kg
[~2024-06-27 00:27] MED LIST changes: +LISI5TAB11; +TIRZ2.5P
[2024-06-27 00:32] VITALS: TEMP 98.3
[2024-06-27 08:26] VITALS: BP 123/58; O2SAT 99
== END 2024-06-27 08:28 | disposition home or self-care (01) ==
LOC: M ED 00:27
DX: R07.89 Other chest pain (principal); I44.0 Atrioventricular block, first degree; I45.10 Unspecified right bundle-branch block; J45.909 Unspecified asthma, uncomplicated; E11.9 Type 2 diabetes mellitus without complications; G40.909 Epilepsy, unspecified, not intractable, without status epilepticus; G47.33 Obstructive sleep apnea (adult) (pediatric); F12.10 Cannabis abuse, uncomplicated; Z88.5 Allergy status to narcotic agent; Z87.442 Personal history of urinary calculi; Z79.52 Long term (current) use of systemic steroids; Z79.2 Long term (current) use of antibiotics; Z79.811 Long term (current) use of aromatase inhibitors; Z79.4 Long term (current) use of insulin; Z79.899 Other long term (current) drug therapy

== ENCOUNTER 2024-07-26 16:55 | Emergency (ER) | payer MEDICARE ==
[~2024-07-26] VITALS: Ht 182.9 cm; Wt 172.7 kg
[2024-07-26 19:43] VITALS: BP 127/81; TEMP 97; O2SAT 99
[2024-07-26] MEDS: IBUPROFEN 600MG TAB PO ONE (20:40)
[2024-07-26] MEDS ORDERED: IBUP-1022 PO (20:45)
== END 2024-07-26 20:50 | disposition home or self-care (01) ==
LOC: M ED 16:55 → EDBD 16:55 → M ED 20:50
DX: S09.90XA Unspecified injury of head, initial encounter (principal); S70.02XA Contusion of left hip, initial encounter; W01.198A Fall on same level from slipping, tripping and stumbling with subsequent striking against other object, initial encounter; G43.909 Migraine, unspecified, not intractable, without status migrainosus; I10 Essential (primary) hypertension; J45.909 Unspecified asthma, uncomplicated; E11.9 Type 2 diabetes mellitus without complications; Z87.442 Personal history of urinary calculi; Z88.5 Allergy status to narcotic agent; Z79.52 Long term (current) use of systemic steroids; Z79.4 Long term (current) use of insulin; Z79.811 Long term (current) use of aromatase inhibitors; Z79.899 Other long term (current) drug therapy; Y92.828 Other wilderness area as the place of occurrence of the external cause; Y93.89 Activity, other specified; Y99.9 Unspecified external cause status

== ENCOUNTER 2024-07-28 12:13 | Emergency (ER) | payer MEDICARE ==
[~2024-07-28] VITALS: Ht 182.9 cm; Wt 172.7 kg
[2024-07-28 13:01] LABS: BASO % 0.5 % (0.0-1.0); EOS # 0.4 10^3/uL (0.0-0.5); EOS % 4.4 % (0.0-3.0); HEMATOCRIT 40.9 % (42.0-52.0); HEMOGLOBIN 13.3 g/dl (13.5-17.5); LYMPH # 2.1 10^3/uL (1.5-5.0); LYMPH % 24.2 % (24.0-44.0); MEAN CORPUSCULAR HEMOGLOBIN 32.5 pg (27.0-33.0); MEAN CORPUSCULAR HGB CONC 32.5 g/dl (32.0-36.5); MONO # 0.6 10^3/uL (0.0-0.8); MONO % 7.1 % (2.0-8.0); NEUTROPHILS # 5.5 10^3/uL (1.5-8.5); NEUTROPHILS % 63.6 % (36.0-66.0); PLATELET COUNT, AUTOMATED 357 10^3/uL (150-450); RED BLOOD COUNT 4.09 10^6/uL (4.30-6.10); WHITE BLOOD COUNT 8.6 10^3/uL (4.0-10.0)
[2024-07-28 13:13] LABS: INR 0.99; PARTIAL THROMBOPLASTIN TIME 27.2 SECONDS (24.8-34.2); PROTHROMBIN TIME 13.4 SECONDS (12.5-14.5)
[2024-07-28 13:25] LABS: CK-MB VALUE MASS 2.7 NG/ML (<3.6)
[2024-07-28 13:28] LABS: ALBUMIN 3.4 G/DL (3.2-5.2); ALKALINE PHOSPHATASE 87 U/L (40-129); ALT/SGPT 27 U/L (7.0-40); AST/SGOT 18 U/L (<34); BILIRUBIN,DIRECT 0.2 MG/DL (<0.4); BILIRUBIN,TOTAL 0.5 MG/DL (0.3-1.2); BLOOD UREA NITROGEN 17 MG/DL (9-23); CALCIUM LEVEL 9.3 MG/DL (8.5-10.1); CARBON DIOXIDE LEVEL 28 MMOL/L (20-31); CHLORIDE LEVEL 105 MMOL/L (98-107); CPK CREATINE PHOSPHOKINASE 377 U/L (46-171); CREATININE FOR GFR 0.98 MG/DL (0.70-1.30); GLOMERULAR FILTRATION RATE > 60.0 (>60); GLUCOSE, FASTING 120 MG/DL (60-100); MB/CK RELATIVE INDEX 0.71 (< OR =4); POTASSIUM SERUM 4.3 MMOL/L (3.5-5.1); SODIUM LEVEL 138 MMOL/L (136-145); TOTAL PROTEIN 7.5 G/DL (5.7-8.2)
[2024-07-28 13:29] LABS: FREE T4 1.24 NG/DL (0.89-1.76)
[2024-07-28 13:30] LABS: THYROID STIMULATING HORMONE 1.049 uIU/ML (0.55-4.78)
[2024-07-28] MEDS ORDERED: ISOVUE-370 76% 100ML VIAL As Ordered ONE (14:10)
[2024-07-28 14:43] LABS: MB/CK RELATIVE INDEX 0.82 (< OR =4)
[2024-07-28] MEDS ORDERED: OMEP40CA4 PO (15:45)
[2024-07-28 16:46] VITALS: BP 122/58; TEMP 96.8; O2SAT 98
== END 2024-07-28 17:04 | disposition home or self-care (01) ==
LOC: M ED 12:13
DX: R07.9 Chest pain, unspecified (principal); K20.90 Esophagitis, unspecified without bleeding; I45.10 Unspecified right bundle-branch block; E11.9 Type 2 diabetes mellitus without complications; I10 Essential (primary) hypertension; G40.909 Epilepsy, unspecified, not intractable, without status epilepticus; F17.200 Nicotine dependence, unspecified, uncomplicated; Z87.442 Personal history of urinary calculi; Z88.5 Allergy status to narcotic agent; Z79.52 Long term (current) use of systemic steroids; Z79.811 Long term (current) use of aromatase inhibitors; Z79.4 Long term (current) use of insulin; Z79.899 Other long term (current) drug therapy
CPT/HCPCS: 36415; 70498; 71046; 71275; 80048; 80076; 82550; 82553; 83880; 84439; 84443; 84484; 85025; 85610; 85730; 87486; 87581; 87633; 87798; 93005; 93041; 94760; 99285; Q9967

== ENCOUNTER 2024-08-27 11:39 | Emergency (ER) | payer MEDICARE ==
[~2024-08-27] VITALS: Ht 182.9 cm; Wt 175.6 kg
[~2024-08-27 11:39] MED LIST changes: +OMEP40CA4 PO
[2024-08-27 11:41] VITALS: BP 141/86; TEMP 98; O2SAT 98
[2024-08-27] MEDS ORDERED: ARNU1INH (11:45)
[2024-08-27] MEDS: AUGMENTIN 875 MG TAB PO ONE (12:21)
[2024-08-27] MEDS ORDERED: ACET1TAB37 PO (12:33)
[2024-08-27] MEDS ORDERED: AMOX875T2 PO (12:33)
== END 2024-08-27 12:39 | disposition home or self-care (01) ==
LOC: M ED 11:39
DX: K02.9 Dental caries, unspecified (principal); E11.9 Type 2 diabetes mellitus without complications; I10 Essential (primary) hypertension; K21.9 Gastro-esophageal reflux disease without esophagitis; G47.30 Sleep apnea, unspecified; G43.909 Migraine, unspecified, not intractable, without status migrainosus; G40.909 Epilepsy, unspecified, not intractable, without status epilepticus; Z79.52 Long term (current) use of systemic steroids; Z79.2 Long term (current) use of antibiotics; Z79.1 Long term (current) use of non-steroidal anti-inflammatories (NSAID); Z79.4 Long term (current) use of insulin; Z79.811 Long term (current) use of aromatase inhibitors; Z79.899 Other long term (current) drug therapy; Z87.442 Personal history of urinary calculi

== ENCOUNTER 2024-09-17 22:00 | Emergency (ER) | payer MEDICARE ==
[~2024-09-17] VITALS: Ht 182.9 cm; Wt 177.3 kg
[~2024-09-17 22:00] MED LIST changes: +ACET1TAB37 PO; +ARNU1INH
[2024-09-17] MEDS: ONDANSETRON 4MG ORAL DISINTEGRATING TAB PO ONE (22:50)
[2024-09-18] MEDS ORDERED: ONDA-83 PO (00:18)
[2024-09-18 00:35] VITALS: BP 135/63; TEMP 101.3; O2SAT 97
[2024-09-18] MEDS: ACETAMINOPHEN 325 MG TAB PO ONE (00:43)
== END 2024-09-18 00:45 | disposition home or self-care (01) ==
LOC: M ED 22:00
DX: K52.9 Noninfective gastroenteritis and colitis, unspecified (principal); E11.9 Type 2 diabetes mellitus without complications; I10 Essential (primary) hypertension; G47.30 Sleep apnea, unspecified; F32.9 Major depressive disorder, single episode, unspecified; G43.909 Migraine, unspecified, not intractable, without status migrainosus; Z88.5 Allergy status to narcotic agent; Z79.52 Long term (current) use of systemic steroids; Z79.2 Long term (current) use of antibiotics; Z79.4 Long term (current) use of insulin; Z79.899 Other long term (current) drug therapy; Z87.442 Personal history of urinary calculi

== ENCOUNTER 2024-10-04 21:38 | Emergency (ER) | payer MEDICARE ==
[~2024-10-04] VITALS: Ht 182.9 cm; Wt 172.7 kg
[~2024-10-04 21:38] MED LIST changes: +ONDA-83 PO
[2024-10-05 07:07] VITALS: BP 140/88; TEMP 98.5; O2SAT 96
[2024-10-05] MEDS: ALBUTEROL 90 MCG/ACT 8GM HFA INHALER INH ONE (07:18)
[2024-10-05] MEDS: ONDANSETRON 4MG ORAL DISINTEGRATING TAB PO ONE (07:18)
== END 2024-10-05 08:44 | disposition home or self-care (01) ==
LOC: M ED 21:38
DX: J09.X2 Influenza due to identified novel influenza A virus with other respiratory manifestations (principal); J45.909 Unspecified asthma, uncomplicated; R11.0 Nausea; E11.9 Type 2 diabetes mellitus without complications; G47.33 Obstructive sleep apnea (adult) (pediatric); Z88.5 Allergy status to narcotic agent; Z79.52 Long term (current) use of systemic steroids; Z79.2 Long term (current) use of antibiotics; Z79.4 Long term (current) use of insulin; Z79.83 Long term (current) use of bisphosphonates; Z79.899 Other long term (current) drug therapy

== ENCOUNTER 2024-12-17 11:29 | Emergency (ER) | payer MEDICARE ==
[~2024-12-17] VITALS: Ht 182.9 cm; Wt 174.5 kg
[2024-12-17 13:20] LABS: BASO # 0.1 10^3/uL (0.0-0.2); BASO % 0.6 % (0.0-1.0); EOS # 0.3 10^3/uL (0.0-0.5); EOS % 3.1 % (0.0-3.0); HEMATOCRIT 46.3 % (42.0-52.0); HEMOGLOBIN 15.6 g/dl (13.5-17.5); LYMPH # 1.6 10^3/uL (1.5-5.0); LYMPH % 19.1 % (24.0-44.0); MEAN CORPUSCULAR HEMOGLOBIN 32.4 pg (27.0-33.0); MEAN CORPUSCULAR HGB CONC 33.7 g/dl (32.0-36.5); MEAN CORPUSCULAR VOLUME 96.1 fl (80.0-96.0); MONO # 1.1 10^3/uL (0.0-0.8); MONO % 12.2 % (2.0-8.0); NEUTROPHILS # 5.6 10^3/uL (1.5-8.5); NEUTROPHILS % 64.9 % (36.0-66.0); PLATELET COUNT, AUTOMATED 374 10^3/uL (150-450); RED BLOOD COUNT 4.82 10^6/uL (4.30-6.10); WHITE BLOOD COUNT 8.6 10^3/uL (4.0-10.0)
[2024-12-17 13:46] LABS: ALBUMIN 3.8 G/DL (3.2-5.2); BILIRUBIN,DIRECT 0.1 MG/DL (<0.4); BILIRUBIN,TOTAL 0.5 MG/DL (0.3-1.2); CALCIUM LEVEL 9.3 MG/DL (8.5-10.1); CREATININE FOR GFR 1.22 MG/DL (0.70-1.30); GLOMERULAR FILTRATION RATE 77.8 (>60); POTASSIUM SERUM 3.6 MMOL/L (3.5-5.1); TOTAL PROTEIN 8.4 G/DL (5.7-8.2)
[2024-12-17] MEDS: ONDANSETRON 4MG ORAL DISINTEGRATING TAB PO ONE (15:42)
[2024-12-17] MEDS: DICYCLOMINE 10 MG CAP PO ONE (15:42)
[2024-12-17] MEDS: KETOROLAC 60MG 2ML VIAL IM ONE (15:47)
[2024-12-17 16:01] VITALS: BP 141/67; TEMP 97.6; O2SAT 99
[2024-12-17] MEDS ORDERED: ONDA-282 PO (16:05)
[2024-12-17] MEDS ORDERED: DICY-61 PO (16:05)
== END 2024-12-17 16:54 | disposition home or self-care (01) ==
LOC: EDBD 11:29 → M ED 11:29
DX: A08.11 Acute gastroenteropathy due to Norwalk agent (principal); K21.9 Gastro-esophageal reflux disease without esophagitis; E11.9 Type 2 diabetes mellitus without complications; G40.909 Epilepsy, unspecified, not intractable, without status epilepticus; G47.30 Sleep apnea, unspecified; I10 Essential (primary) hypertension; Z87.42 Personal history of other diseases of the female genital tract; Z88.5 Allergy status to narcotic agent; Z86.79 Personal history of other diseases of the circulatory system; Z79.52 Long term (current) use of systemic steroids; Z79.2 Long term (current) use of antibiotics; Z79.83 Long term (current) use of bisphosphonates; Z79.899 Other long term (current) drug therapy
CPT/HCPCS: 80048; 80076; 83690; 85025; 87507; 96372; 99284; J1885

== ENCOUNTER 2025-01-02 09:12 | Emergency (ER) | payer MEDICARE ==
[~2025-01-02] VITALS: Ht 182.9 cm; Wt 181.8 kg
[~2025-01-02 09:12] MED LIST changes: +DICY-61 PO; -FLOM0.4C39 PO; +TAMS-18 PO
[2025-01-02 09:17] VITALS: BP 119/78; TEMP 98.5; O2SAT 96
== END 2025-01-02 10:30 | disposition left against medical advice (07) ==
LOC: M ED 09:12
DX: Z53.21 Procedure and treatment not carried out due to patient leaving prior to being seen by health care provider (principal)

== ENCOUNTER 2025-03-24 09:42 | Emergency (ER) | payer MEDICARE, MEDICAID ==
[~2025-03-24 09:42] MED LIST changes: -ARNU1INH; -LISI5TAB11; +ROSU40TA81 PO; +TIRZ5PEN INJ
[2025-03-24 09:52] VITALS: TEMP 97.1
[2025-03-24 10:22] LABS: PLATELET COUNT, AUTOMATED 297 10^3/uL (150-450)
[2025-03-24] MEDS: KETOROLAC 30 MG/ML 1 ML VIAL IV ONE (10:36)
[2025-03-24] MEDS ORDERED: TOPI-256 PO (13:57)
[2025-03-24 14:00] VITALS: BP 120/63; O2SAT 94
== END 2025-03-24 14:31 | disposition home or self-care (01) ==
LOC: M ED 09:42
DX: G43.409 Hemiplegic migraine, not intractable, without status migrainosus (principal); E11.9 Type 2 diabetes mellitus without complications; G47.33 Obstructive sleep apnea (adult) (pediatric); I10 Essential (primary) hypertension; F41.9 Anxiety disorder, unspecified; F32.A Depression, unspecified; F12.10 Cannabis abuse, uncomplicated; Z88.5 Allergy status to narcotic agent; Z79.1 Long term (current) use of non-steroidal anti-inflammatories (NSAID); Z79.51 Long term (current) use of inhaled steroids; Z79.84 Long term (current) use of oral hypoglycemic drugs; Z79.899 Other long term (current) drug therapy
CPT/HCPCS: 70450; 80047; 85027; 93041; 94760; 96374; 96375; 99285; J1885; J2765

== ENCOUNTER 2025-04-15 14:38 | Emergency (ER) | payer MEDICARE, MEDICAID ==
[~2025-04-15] VITALS: Ht 182.9 cm; Wt 181.8 kg
[~2025-04-15 14:38] MED LIST changes: +ACET-1592 PO; -ACET1TAB37 PO; +TOPI-256 PO
[2025-04-15 15:41] LABS: CK-MB VALUE MASS 5.2 NG/ML (<3.6)
[2025-04-15 15:43] LABS: CALCIUM LEVEL 8.9 MG/DL (8.5-10.1); CARBON DIOXIDE LEVEL 27 MMOL/L (20-31); CHLORIDE LEVEL 105 MMOL/L (98-107); CPK CREATINE PHOSPHOKINASE 428 U/L (46-171); CREATININE FOR GFR 0.98 MG/DL (0.70-1.30); GLOMERULAR FILTRATION RATE > 90.0 (>60); MB/CK RELATIVE INDEX 1.21 (< OR =4); POTASSIUM SERUM 4.1 MMOL/L (3.5-5.1); SODIUM LEVEL 142 MMOL/L (136-145)
[2025-04-15 16:25] LABS: BASO # 0.1 10^3/uL (0.0-0.2); BASO % 0.6 % (0.0-1.0); EOS # 0.6 10^3/uL (0.0-0.5); EOS % 5.5 % (0.0-3.0); LYMPH # 2.3 10^3/uL (1.5-5.0); LYMPH % 19.9 % (24.0-44.0); MONO # 1.0 10^3/uL (0.0-0.8); MONO % 8.5 % (2.0-8.0); NEUTROPHILS # 7.4 10^3/uL (1.5-8.5); NEUTROPHILS % 65.3 % (36.0-66.0); PLATELET COUNT, AUTOMATED 325 10^3/uL (150-450)
[2025-04-15 16:46] LABS: CK-MB VALUE MASS 4.7 NG/ML (<3.6)
[2025-04-15 16:48] LABS: CPK CREATINE PHOSPHOKINASE 403 U/L (46-171); MB/CK RELATIVE INDEX 1.16 (< OR =4)
[2025-04-15] MEDS ORDERED: ISOVUE-370 76% 100 ML VIAL As Ordered ONE (17:24)
[2025-04-15 20:22] VITALS: BP 129/67; TEMP 97.6; O2SAT 97
== END 2025-04-15 20:26 | disposition home or self-care (01) ==
LOC: M ED 14:38
DX: R07.9 Chest pain, unspecified (principal); E27.9 Disorder of adrenal gland, unspecified; I45.10 Unspecified right bundle-branch block; G40.909 Epilepsy, unspecified, not intractable, without status epilepticus; E11.9 Type 2 diabetes mellitus without complications; Z88.5 Allergy status to narcotic agent; Z79.52 Long term (current) use of systemic steroids; Z79.82 Long term (current) use of aspirin; Z79.899 Other long term (current) drug therapy; Z79.4 Long term (current) use of insulin
CPT/HCPCS: 36415; 71045; 71275; 80048; 82550; 82553; 84484; 85025; 93005; 93041; 94760; 99285; Q9967

== ENCOUNTER 2025-04-28 08:53 | Emergency (ER) | payer MEDICARE, MEDICAID ==
[~2025-04-28] VITALS: Ht 182.9 cm; Wt 184.3 kg
[~2025-04-28 08:53] MED LIST changes: -IBUP-1022 PO; +IBUP600T42 PO
[2025-04-28] MEDS ORDERED: FAMO1TAB11 (09:05)
[2025-04-28] MEDS: ACETAMINOPHEN 500 MG TAB PO ONE (11:38)
[2025-04-28] MEDS: NEOSPORIN TOP OINT 15 GM TOP ONE (11:38)
[2025-04-28 11:43] VITALS: BP 131/67; TEMP 97; O2SAT 98
== END 2025-04-28 12:10 | disposition home or self-care (01) ==
LOC: M ED 08:53
DX: S63.502A Unspecified sprain of left wrist, initial encounter (principal); S83.92XA Sprain of unspecified site of left knee, initial encounter; S20.219A Contusion of unspecified front wall of thorax, initial encounter; S60.417A Abrasion of left little finger, initial encounter; W01.198A Fall on same level from slipping, tripping and stumbling with subsequent striking against other object, initial encounter; E11.9 Type 2 diabetes mellitus without complications; J45.909 Unspecified asthma, uncomplicated; G43.909 Migraine, unspecified, not intractable, without status migrainosus; G40.909 Epilepsy, unspecified, not intractable, without status epilepticus; M54.50 Low back pain, unspecified; F12.10 Cannabis abuse, uncomplicated; Y92.410 Unspecified street and highway as the place of occurrence of the external cause; Y93.89 Activity, other specified; Y99.9 Unspecified external cause status; Z87.442 Personal history of urinary calculi; Z86.79 Personal history of other diseases of the circulatory system; Z88.5 Allergy status to narcotic agent

== ENCOUNTER 2025-05-30 11:07 | Emergency (ER) | payer MEDICARE, MEDICAID ==
[~2025-05-30] VITALS: Ht 182.9 cm; Wt 181.5 kg
[~2025-05-30 11:07] MED LIST changes: +FAMO1TAB11
[2025-05-30 12:31] VITALS: BP 110/53
[2025-05-30 12:37] LABS: BASO # 0.1 10^3/uL (0.0-0.2); BASO % 0.6 % (0.0-1.0); EOS # 0.6 10^3/uL (0.0-0.5); EOS % 8.1 % (0.0-3.0); LYMPH # 2.2 10^3/uL (1.5-5.0); LYMPH % 27.3 % (24.0-44.0); MONO # 0.7 10^3/uL (0.0-0.8); MONO % 8.6 % (2.0-8.0); NEUTROPHILS # 4.4 10^3/uL (1.5-8.5); NEUTROPHILS % 55.3 % (36.0-66.0); PLATELET COUNT, AUTOMATED 323 10^3/uL (150-450)
[2025-05-30 12:58] LABS: CK-MB VALUE MASS 4.7 NG/ML (<3.6)
[2025-05-30 13:00] LABS: CALCIUM LEVEL 8.9 MG/DL (8.5-10.1); CARBON DIOXIDE LEVEL 28 MMOL/L (20-31); CHLORIDE LEVEL 104 MMOL/L (98-107); CREATININE FOR GFR 1.07 MG/DL (0.70-1.30); GLOMERULAR FILTRATION RATE > 90.0 (>60); POTASSIUM SERUM 4.3 MMOL/L (3.5-5.1); SODIUM LEVEL 138 MMOL/L (136-145)
[2025-05-30 13:24] LABS: CPK CREATINE PHOSPHOKINASE 318 U/L (46-171); MB/CK RELATIVE INDEX 1.47 (< OR =4)
[2025-05-30 13:50] LABS: CK-MB VALUE MASS 4.8 NG/ML (<3.6)
[2025-05-30 13:51] LABS: CPK CREATINE PHOSPHOKINASE 311.0 U/L (46-171); MB/CK RELATIVE INDEX 1.54 (< OR =4)
[2025-05-30 14:06] VITALS: TEMP 97
[2025-05-30 14:07] VITALS: O2SAT 96
== END 2025-05-30 14:13 | disposition home or self-care (01) ==
LOC: M ED 11:07 → EDBD 11:07 → M ED 14:13
DX: R07.9 Chest pain, unspecified (principal); R00.1 Bradycardia, unspecified; I44.0 Atrioventricular block, first degree; G40.909 Epilepsy, unspecified, not intractable, without status epilepticus; E11.9 Type 2 diabetes mellitus without complications; Z88.5 Allergy status to narcotic agent; Z79.52 Long term (current) use of systemic steroids; Z79.82 Long term (current) use of aspirin; Z79.899 Other long term (current) drug therapy; Z79.4 Long term (current) use of insulin

== ENCOUNTER 2025-06-05 12:05 | Emergency (ER) | payer MEDICARE, MEDICAID ==
[~2025-06-05] VITALS: Ht 182.9 cm; Wt 181.5 kg
[~2025-06-05 12:05] MED LIST changes: -FAMO1TAB11; +FAMO1TAB11 PO; +TIRZ2.5P INJ
[2025-06-05 12:11] VITALS: TEMP 96.4
[2025-06-05 12:57] LABS: BASO # 0.1 10^3/uL (0.0-0.2); BASO % 0.7 % (0.0-1.0); EOS # 0.6 10^3/uL (0.0-0.5); EOS % 7.0 % (0.0-3.0); LYMPH # 2.1 10^3/uL (1.5-5.0); LYMPH % 23.5 % (24.0-44.0); MONO # 0.8 10^3/uL (0.0-0.8); MONO % 8.7 % (2.0-8.0); NEUTROPHILS # 5.4 10^3/uL (1.5-8.5); NEUTROPHILS % 59.9 % (36.0-66.0); PLATELET COUNT, AUTOMATED 300 10^3/uL (150-450)
[2025-06-05 13:09] LABS: INR 0.95
[2025-06-05] MEDS ORDERED: ROSU40TA81 PO (13:24)
[2025-06-05] MEDS ORDERED: ASPI81TA26 PO (13:24)
[2025-06-05] MEDS ORDERED: HOME MED LIST COMPLETE! XX SCH (13:25)
[2025-06-05 13:54] LABS: CALCIUM LEVEL 8.6 MG/DL (8.5-10.1); CARBON DIOXIDE LEVEL 29 MMOL/L (20-31); CHLORIDE LEVEL 103 MMOL/L (98-107); CREATININE FOR GFR 0.99 MG/DL (0.70-1.30); GLOMERULAR FILTRATION RATE > 90.0 (>60); POTASSIUM SERUM 3.9 MMOL/L (3.5-5.1); SODIUM LEVEL 139 MMOL/L (136-145)
[2025-06-05] MEDS: KETOROLAC TROMETHAMINE 10 MG TAB PO ONE (14:22)
[2025-06-05 15:40] VITALS: BP 110/66; O2SAT 98
== END 2025-06-05 15:55 | disposition home or self-care (01) ==
LOC: M ED 12:05
DX: G43.809 Other migraine, not intractable, without status migrainosus (principal); E11.9 Type 2 diabetes mellitus without complications; G47.33 Obstructive sleep apnea (adult) (pediatric); F32.A Depression, unspecified; F41.9 Anxiety disorder, unspecified; G40.909 Epilepsy, unspecified, not intractable, without status epilepticus; F12.10 Cannabis abuse, uncomplicated; Z88.5 Allergy status to narcotic agent; Z79.82 Long term (current) use of aspirin; Z79.4 Long term (current) use of insulin; Z79.899 Other long term (current) drug therapy
CPT/HCPCS: 36415; 70450; 80047; 80048; 85025; 85610; 85730; 86850; 86900; 86901; 93005; 94760; 96374; 99285; J2765

== ENCOUNTER 2025-07-20 07:53 | Emergency (ER) | payer MEDICARE, MEDICAID ==
[~2025-07-20] VITALS: Ht 182.9 cm; Wt 181.4 kg
[~2025-07-20 07:53] MED LIST changes: +ASPI81TA26 PO
[2025-07-20] MEDS ORDERED: JARD1TAB (08:07)
[2025-07-20] MEDS: KETOROLAC 60 MG/2 ML VIAL IM ONE (08:44)
[2025-07-20] MEDS ORDERED: METH-1164 PO (09:46)
[2025-07-20 09:53] VITALS: BP 134/76; TEMP 96.6; O2SAT 99
== END 2025-07-20 09:54 | disposition home or self-care (01) ==
LOC: M ED 07:53
DX: M54.50 Low back pain, unspecified (principal); E11.9 Type 2 diabetes mellitus without complications; F32.A Depression, unspecified; F41.9 Anxiety disorder, unspecified; K21.9 Gastro-esophageal reflux disease without esophagitis; I10 Essential (primary) hypertension; J45.909 Unspecified asthma, uncomplicated; Z63.79 Other stressful life events affecting family and household; Z88.5 Allergy status to narcotic agent; Z79.82 Long term (current) use of aspirin; Z79.899 Other long term (current) drug therapy; Z79.4 Long term (current) use of insulin
CPT/HCPCS: 96372; 99284; J1885

== ENCOUNTER → 2025-07-23 | Outpatient (CLI) | payer MEDICARE, MEDICAID ==
[~2025-07-23] MED LIST changes: +JARD1TAB; +METH-1164 PO
== END ==
LOC: M WUC 09:27
PROVIDERS: ATTEND Student in an Organized Health Care Education/Training Program
DX: M54.50 Low back pain, unspecified (principal)

== ENCOUNTER 2025-08-25 09:57 | Emergency (ER) | payer MEDICARE, MEDICAID ==
[~2025-08-25] VITALS: Ht 182.9 cm; Wt 180.7 kg
[2025-08-25] MEDS: IPRATROPIUM 0.5 MG/ALBUTEROL 2.5 MG INH SOL UD 3 ML NEB ONE (12:16)
[2025-08-25] MEDS ORDERED: NEBU1EAC80 MC (12:47)
[2025-08-25 13:01] VITALS: BP 126/64; TEMP 96.5; O2SAT 99
== END 2025-08-25 13:03 | disposition home or self-care (01) ==
LOC: M ED 09:57
DX: R06.2 Wheezing (principal); R05.9 Cough, unspecified; E11.9 Type 2 diabetes mellitus without complications; I10 Essential (primary) hypertension; G40.909 Epilepsy, unspecified, not intractable, without status epilepticus; F12.10 Cannabis abuse, uncomplicated; Z88.5 Allergy status to narcotic agent; Z91.018 Allergy to other foods; Z79.82 Long term (current) use of aspirin; Z79.4 Long term (current) use of insulin; Z79.899 Other long term (current) drug therapy; Z79.52 Long term (current) use of systemic steroids